=== PATIENT | female | born 1995 | race Caucasian/White ===

== ENCOUNTER 2024-01-27 11:12 | Outpatient (CLI) | payer OTHER, MEDICAID, SELFPAY | END 2024-01-27 11:13 | disposition home or self-care (01) | LOC: NFLDREF 01-31 02:56 | PROVIDERS: Visit Provider Advanced Practice Midwife | DX: Z34.92 Encounter for supervision of normal pregnancy, unspecified, second trimester (principal); Z3A.16 16 weeks gestation of pregnancy | CPT/HCPCS: 86787 ==

== ENCOUNTER 2024-02-22 08:35 | Outpatient (CLI) | payer OTHER, MEDICAID, SELFPAY ==
--- NOTE | 2024-02-22 08:45 | CRLHL7_ITS ---
For Patients: As a result of the Century Cures Act, medical imaging exams and procedure reports are released immediately into your electronic medical record. You may view this report before your referring provider. If you have questions, please contact your health care provider. INDICATION: Evaluate anatomy. COMPARISON: none TECHNIQUE: Real time argueta scale imaging of the fetus was performed as well as color Doppler analysis of the umbilical vessels. FINDINGS: Sonographic imaging demonstrates a single living intrauterine gestation. Fetus demonstrates a regular cardiac rate of 163 beats per minute. Fetus has a breech position. The placenta lies anteriorly without evidence of placenta previa. Placenta located 8.1 cm from the internal cervical os. Amniotic fluid volume appears normal. Single deepest vertical pocket: 3.8 cm. The cervix is closed and measures 4.5 cm in length. The composite ultrasound gestational age is calculated at 20 weeks 1 day with an estimated sonographic due date of 07/10/2024. The estimated weight is 345 grams which lies at the 64th %. The following biometric measurements were obtained: Biparietal diameter: 4.5 cm/19 weeks 3 days 27th% Head circumference: 17.2 cm/19 weeks 5 days 30th% Abdominal circumference: 15.9 cm/21 weeks 0 days 76th% Femur length: 3.1 cm/19 weeks 5 days 32nd% The HC/AC ratio measures: 1.08 range (1.07-1.25) On anatomic survey, there is a normal appearance of the cerebral ventricles, cavum septi pellucidi, cisterna magna and cerebellum. The nose, lips, and facial profile appear normal. The cervical, thoracic and lumbar spine are well visualized and appear normal. There is a normal four-chamber heart view and the left and right ventricular outflow tracts appear normal. The diaphragm and stomach appear normal. The kidneys and bladder also appear normal. There is a normal three-vessel cord and cord insertion site. The four extremities appear normal. IMPRESSION: Normal OB ultrasound exam with concordance of clinical and sonographic dating. No intrinsic abnormalities noted on anatomic survey. Dictated by Rafita Thurman MD @ 02/22/2024 10:28:04 AM (Electronically Signed)
== END 2024-02-22 08:36 | disposition home or self-care (01) ==
LOC: US 08:36
PROVIDERS: Visit Provider Advanced Practice Midwife
DX: Z34.92 Encounter for supervision of normal pregnancy, unspecified, second trimester (principal); Z3A.20 20 weeks gestation of pregnancy
CPT/HCPCS: 76805

== ENCOUNTER 2024-04-20 09:29 | Outpatient (CLI) | payer MEDICAID, SELFPAY | END 2024-04-20 09:30 | disposition home or self-care (01) | LOC: NFLDREF 04-22 11:33 | PROVIDERS: Visit Provider Advanced Practice Midwife | DX: Z34.93 Encounter for supervision of normal pregnancy, unspecified, third trimester (principal); Z3A.28 28 weeks gestation of pregnancy | CPT/HCPCS: 86592 ==

== ENCOUNTER 2024-06-15 10:36 | Outpatient (CLI) | payer MEDICAID, SELFPAY ==
[2024-06-16 11:09] LABS: Strep B DNA Probe POSITIVE (Negative)
[2024-06-16 11:20] LABS: Strep B Susceptibility Needed? Yes
== END 2024-06-15 10:37 | disposition home or self-care (01) ==
LOC: NFLDREF 10:36
PROVIDERS: Visit Provider Advanced Practice Midwife
DX: Z34.93 Encounter for supervision of normal pregnancy, unspecified, third trimester (principal); Z3A.36 36 weeks gestation of pregnancy
CPT/HCPCS: 82728; 87081; 87186; 87653

== ENCOUNTER 2024-07-13 18:42 | Inpatient (IN) | payer MEDICAID, SELFPAY ==
[2024-07-13] VITALS (11 sets, daily range): BP systolic 120–145; BP diastolic 77–88; PULSE 96–134; RESP 16; TEMP 36.8–37.3; O2SAT 96–100; BMI 35.2
--- OUTSIDE RECORDS SUMMARY | 2024-07-13 17:32 | XMS_ITS | Encounter Summary ---
Author Organization [place] Address [address] [place] [address] Care Team Providers Care Business Records Manager Name Role Phone No Ref-Primary, Physician Primary Care Provider Carly Salazar MD Unavailable [phone] Samara Garcia T PA-C Unavailable [phone] Kathy Foster DO Unavailable [phone] PhilipTerrie onofre APRN BOAT MECHANIC Unavailable Un available Esther Mabry APRN BOAT MECHANIC Primary Care Provider Esther Mabry APRN BOAT MECHANIC Unavailable Samara Garcia T PA-C Unavailable [phone] Samara Garcia PA-C Unavailable [phone] Murali Villarreal MD Unavailable [phone] Murali Villarreal MD Unavailable [phone] Kathy Foster DO Unavailable [phone] Lore Leblanc APRN, CNM Unavailable + Carly Salazar MD Unavailable [phone] Kathy Foster DO Unavailable [phone] Lore Leblanc APRN, CNM Unavailable + Carly Salazar MD Unavailable Encounter Details Date Type Department Care Team (Late st Contact Info) Description 02/07/2022 MyC Medical Advice [facility] [address] [place] [phone] Carly Salazar MD [address] [place], [place] [address] Social History Tobacco Use Types Packs/Day Years Used Date Smoking Tobacco: Never Smokeless Tobacco: Never Alcohol Use Standard Drinks/Week Comments Not Currently 0 (1 standard drink = 0.6 oz pur e alcohol) Comments No Sex and Gender Information Value Date Recorded Sex Assigned at Female 05/02/2022 10:06 AM CDT Legal Sex Female 3:33 PM CDT Gender Identity Female 05/02/2022 10:06 AM CDT Sexual Orientation Straight 05/02/2022 10 :06 AM CDT Occupation Industry Job Start Date Job End Date Not on file Not on file Not on file Not on file COVID-19 Exposure Response Date Recorded In the last 10 days, have yo u been in contact with someone who was confirmed or suspected to have Coronavirus/COVID-19? No / Unsure 01/23/2022 3:01 PM CDT documented as of this encounter Plan of Treatment Not on file documented as of this encounter Visit Diagnoses Not on filedocumented in this encounter Additional Health Concerns Assessment Noted Time PHQ-9 Depression Total Score: 16 018 7:48 AM ORACLE SOA DEVELOPER documented as of this encounter Care Teams Business Records Manager Relationship Specialty Start Date End Date No Ref-Primary, Physician PCP - General 05/17/21 08/14/22 Esther Mabry, HEAD PIECE ASSEMBLER BOAT MECHANIC [address] [place], [place] [address] PCP - General Internal Medicine 08/15/22 Carly Salazar MD [address] [place], [place] [address] Assigned OBGYN Provider 05/03/2207/03 Samara Garcia PA-C [address] [place] [address] Physician Activities Assistant Dermatology 03/31/22 [place] [address] [place] [address] cnc specialist 03/31/22 Terrie Palacios, HEAD PIECE ASSEMBLER BOAT MECHANIC Assigned PCP 07/09/22 09/05/22 Esther Mabry APRN BOAT MECHANIC [address] [place] [address] Assigned PCP 09/06/22 Samara Garcia PA-C [address] [place] [address] Assigned Surgical Provider 11/08/22 11/14/22 Samara Garcia PA-C [address] [address] Assigned Surgical Provider 09/27/22 10/24/22 Murali Villarreal MD [address] [place] [address] Assigned Surgical Provider 10/25/22 11/07/22 Murali Villarreal MD [address] [place] [address] Assigned Surgical Provider 11/15/22 05/03/24 Kathy Foster DO [address] [address] Assigned OBGYN Provider 07/04/23 Lore Leblanc APRN CN [address] [place] [address] Assigned OBGYN Provider 07/25/23 Carly Salazar MD [address] [place] [place] [address] cnc specialist 08/31/23 Kathy Foster DO [address] [address] Assigned OBGYN Provider 09/04/23 Lore Leblanc APRN CN [facility] [address] [place] [address] Assigned OBGYN Provider 09/25/23 Carly Salazar MD [address] [place] [address] Assigned OBGYN Provider 02/02/24 documented as of this encounter
--- OUTSIDE RECORDS SUMMARY | 2024-07-13 17:32 | XMS_ITS | Encounter Summary ---
Author Organization [place] Address [address] [place] [address] Care Team Providers Care Sales Broker Name Role Phone Carly Salazar MD Unavailable [phone] Samara Garcia PA-C Unavailable [phone] Kathy Foster DO Unavailable [phone] Esther Mabry APRN TANK PUMPER Primary Care Provider Esther Mabry APRN TANK PUMPER Unavailable Samara Garcia PA-C Unavailable [phone] Samara Garcia PA-C Unavailable [phone] Murali Villarreal MD Unavailable +[phone] Murali Villarreal MD Unavailable +[phone] Kathy Foster DO Unavailable [phone] Lore Leblanc APRN, CNM Unavailable + 2 Carly Salazar MD Unavailable [phone] Kathy Foster DO Unavailable [phone] Lore Leblanc APRN, CNM Unavailable + Carly Salazar MD Unavailable [phone] Encounter Details Date Type Department Care Team (Late st Contact Info) Description 09/25/2022 [facility] Medical Advice [address] [address] Blanca Gunderson, RN Social History Tobacco Use Types Packs/Day Years Used Date Smoking Tobacco: Never Passive Smoke Exposure: Never Smokeless Tobacco: Never Alcohol Use Standard Drinks/Week Comments Not Currently 0 (1 standard drink = 0.6 oz pur e alcohol) PHQ-2 Answer Date Recorded PHQ-2 Score 0 08/15/2022 Comments No Sex and Gender Information Value [...] suspected to have Coronavirus/COVID-19? No / Unsure 09/19/2022 12:06 PM SHOT COAT TENDER documented as of this encounter Plan of Treatment Not on file documented as of this encounter Visit Diagnoses Not on filedocumented in this encounter Additional Health Concerns Assessment Noted Time PHQ-9 Depression Total Score: 3 03/25/20 22 9:52 AM CDT documented as of this encounter Care Teams Sales Broker Relationship Specialty Start Date End Date Esther Mabry APRN TANK PUMPER [address] [place] [address] PCP - General Internal Medicine 08/15/22 Carly Salazar MD [address] [place] [address] Assigned OBGYN Provider 05/03/2207/03 Samara Garcia PA-C [address] [place] [address] Physician Cost Estimator Dermatology 03/31/22 [place] [address] [facility] [address] admissions consultant 03/31/22 Esther Mabry APRN TANK PUMPER [address] [place] [address] Assigned PCP 09/06/22 Samara Garcia PA-C [address] [place] [address] Assigned Surgical Provider 11/08/22 11/14/22 Samara Garcia PA-C [address] [place] [address] Assigned Surgical Provider 09/27/22 10/24/22 Murali Villarreal MD [address] [place] [address] Assigned Surgical Provider 10/25/22 11/07/22 Murali Villarreal MD [address] [place] [address] Assigned Surgical Provider 11/15/22 05/03/24 Kathy Foster DO [address] [address] Assigned OBGYN Provider 07/04/23 Lore Leblanc APRN CNM [address] [place] [id number] Assigned OBGYN Provider 07/25/23 Carly Salazar MD [address] [place] [address] admissions consultant 08/31/23 Kathy Foster DO [address] [address] Assigned OBGYN Provider 09/04/23 Lore Leblanc APRN [facility] [address] [place] [address] Assigned OBGYN Provider 09/25/23 Carly Salazar MD [address] [place] [address] Assigned OBGYN Provider 02/02/24 documented as of this encounter
--- OUTSIDE RECORDS SUMMARY | 2024-07-13 17:32 | XMS_ITS | Encounter Summary ---
Author Organization [place] Address [address] [place] [address] Care Team Providers Care Vamp Marker Name Role Phone Samara Garcia PA-C Unavailable [phone] Kathy Foster DO Unavailable [phone] Esther Mabry APRN SUPERVISOR FRAMING MILL Primary Care Provider Esther Mabry APRN SUPERVISOR FRAMING MILL Unavailable Murali Villarreal MD Unavailable [phone] Lore Leblanc APRNM Unavailable [phone] Carly Salazar MD Unavailable [phone] Kathy Foster DO Unavailable [phone] Lore Leblanc APRN, CNM Unavailable + 2 Carly Salazar MD Unavailable [phone] Encounter Details Date Type Department Care Team (Late st Contact Info) Description 08/27/2023 [facility] Medical Advice [facility] [address], [address] [place] [address] Lore Leblanc APRN CNNella [address] [facility] [address] [place] [address] Social History Tobacco Use Types Packs/Day Years Used Date Smoking Tobacco: Never Passive Smoke Exposure: Never Smokeless Tobacco: Never Alcohol Use Standard Drinks/Week Comments Not Currently 0 (1 standard drink = 0.6 oz pur e alcohol) PHQ-2 Answer Date Recorded PHQ-2 Score 0 08/15/2022 Adolescent Education Answer Date Record ed Getting School Help Needed Not on file 04/03 Comments No Sex and Gender Information Value Date Recorded Sex Assigned at Female 05/02/2022 10:06 AM CDT Legal Sex Female 3:33 PM CDT Gender Identity Female 05/02/2022 10:06 AM CDT Sexual Orientation Straight 05/02/2022 10 :06 AM CDT Occupation Industry Job Start Date Job End Date Not on file Not on file Not on file Not on file documented as of this encounter Miscellaneous Notes * Telephone Encounter - Saba Ledbetter RN - 08/27/2023 3:33 PM INFORMATION TECHNOLOGY ASSOCIATE Pls see lucian msg and advise. BAIRON Walter RMATION TECHNOLOGY ASSOCIATE documented in this encounter Plan of Treatment Not on file documented as of this encounter Visit Diagnoses Not on filedocumented in this encounter Additional Health Concerns Assessment Noted Time PHQ-9 Depression Total Score: 3 03/25/20 22 9:52 AM CDT documented as of this encounter Care Teams Vamp Marker Relationship Specialty Start Date End Date Esther Mabry APRN SUPERVISOR FRAMING MILL [address] [place] [address] PCP - General Internal Medicine 08/15/22 Samara Garcia PASummerC [address] [place] [address] Physician Head Buyer Tobacco Dermatology 03/31/22 [place] [address] [place] [address] driving teacher 03/31/22 Esther Mabry APRN SUPERVISOR FRAMING MILL [address] [place] [address] Assigned PCP 09/06/22 Murali Villarreal MD [address] [place] [address] Assigned Surgical Provider 11/15/22 05/03/24 Lore Leblanc APRN CNM [facility] [address] [place] [address] Assigned OBGYN Provider 07/25/23 Carly Salazar MD [address] [place] [address] driving teacher 08/31/23 Kathy Foster DO [address] [facility] [address] [place] [address] Assigned OBGYN Provider 09/04/23 Lore Leblanc APRN CN [facility] [place] [facility] [address] [place] [address] Assigned OBGYN Provider 09/25/23 Carly Salazar MD [address] [place] [address] Assigned OBGYN Provider 02/02/24 documented as of this encounter
--- OUTSIDE RECORDS SUMMARY | 2024-07-13 17:32 | XMS_ITS | Encounter Summary ---
Author Organization [place] Address [address] [place] [address] Care Team Providers Care Ep Technologist Name Role Phone Samara Garcia PA-C Unavailable [phone] Kathy Foster DO Unavailable [phone] Esther Mabry ESTHETICIAN MAKEUP ARTIST PHARMACY TECH Primary Care Provider [phone] Eshter Mabry APRN PHARMACY TECH Unavailable [phone] Murali Villarreal MD Unavailable Carly Salazar MD Unavailable [phone] Lore Leblanc APRN CN Unavailable [phone] Carly Salazar MD Unavailable [phone] Encounter Details Date Type Department Care Team (Late st Contact Info) Description 11/18/2023 [facility] Medical Advice [facility] [place] [address] [facility] [address] [place] [phone] Tori Lewis, RN Social History Tobacco Use Types Packs/Day Years Used Date Smoking Tobacco: Never Passive Smoke Exposure: Never Smokeless Tobacco: Never Alcohol Use Standard Drinks/Week Comments Not Currently 0 (1 standard drink = 0.6 oz pur e alcohol) PHQ-2 Answer Date Recorded PHQ-2 Score 0 11/18/2023 Adolescent Education Answer Date Record ed Getting School Help Needed Not on file 04/03 Estimated Date of Delivery Comme nts Yes 07/11/2024 Based on last me nstrual period of 10/05/2023 (Exact Date), regular, still Sex and Gender Information Value Date Recorded Sex Assigned at Female 05/02/2022 10:06 AM CDT Legal Sex Female 3:33 PM CDT Gender Identity Female 05/02/2022 10:06 AM CDT Sexual Orientation Straight 05/02/2022 10 :06 AM CDT 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 on file Not on file Not on file documented as of this encounter Plan of Treatment Not on file documented as of this encounter Visit Diagnoses Not on filedocumented in this encounter Additional Health Concerns Assessment Noted Time PHQ-9 Depression Total Score: 3 03/25/20 9:52 AM CDT documented as of this encounter Care Teams Ep Technologist Relationship Specialty Start Date End Date Esther Mabry APRN PHARMACY TECH [address] [place] [address] PCP - General Internal Medicine 08/15/22 Samara Garcia PASummerC [address] [place] [address] Physician Green Feed Attendant Dermatology 03/31/22 [place] [address] [place] [address] rn palliative 03/31/22 Esther Mabry APRN PHARMACY TECH [address] [place] [address] Assigned PCP 09/06/22 Murali Villarreal MD [address] [place] [address] Assigned Surgical Provider 11/15/22 05/03/24 Carly Salazar MD [address] [place] [address] rn palliative 08/31/23 Lore Leblanc APRN [facility] [address] [place] [address] Assigned OBGYN Provider 09/25/23 Carly Salazar MD [address] [place] [address] Assigned OBGYN Provider 02/02/24 documented as of this encounter
--- OUTSIDE RECORDS SUMMARY | 2024-07-13 17:32 | XMS_ITS | Encounter Summary ---
Author Organization [place] Address [address] [place] [address] Care Team Providers Care Motel Food Service Supervisor Name Role Phone No Ref-Primary, Physician Primary Care Provider Carly Salazar MD Unavailable [phone] Samara Garcia T PA-C Unavailable [phone] Kathy Foster DO Unavailable [phone] PhilipTerrie onofre APRN LINUX SUPPORT ENGINEER Unavailable Un available Esther Mabry APRN LINUX SUPPORT ENGINEER Primary Care Provider Esther Mabry APRN LINUX SUPPORT ENGINEER Unavailable Samara Garcia T PA-C Unavailable [phone] [...] Care Team (Late st Contact Info) Description 10/21/2021 MyC Medical Advice Initial Department Danish Irvin Social History Tobacco Use Types Packs/Day Years Used Date Smoking Tobacco: Never Smokeless Tobacco: Never Alcohol Use Standard Drinks/Week Comments Not Currently 0 (1 standard drink = 0.6 oz pur e alcohol) Comments Yes Sex and Gender Information Value Date Recorded [...] suspected to have Coronavirus/COVID-19? No / Unsure 10/24/2021 10:50 AM CDT documented as of this encounter Plan of Treatment Not on file documented as of this encounter Visit Diagnoses Not on filedocumented in this encounter Additional Health Concerns Assessment Noted Time PHQ-9 Depression Total Score: 16 018 7:48 AM CRAYON PAINTER documented as of this encounter Care Teams Motel Food Service Supervisor Relationship Specialty Start Date End Date No Ref-Primary, Physician PCP - General 05/17/21 08/14/22 Esther Mabry APRN LINUX SUPPORT ENGINEER [address] [place], [place] [address] PCP - General Internal Medicine 08/15/22 Carly Salazar MD [address] [place] [address] Assigned OBGYN Provider 05/03/2207/03 Samara Garcia PA-C [address] [place] [address] Physician Ampoule Filler Dermatology 03/31/22 [place] [address] [facility] [place] [address] newspaper writer 03/31/22 Terrie Palacios, NETWORK CONTROL OPERATORS SUPERVISOR LINUX SUPPORT ENGINEER Assigned PCP 07/09/22 09/05/22 Esther Mabry, NETWORK CONTROL OPERATORS SUPERVISOR LINUX SUPPORT ENGINEER [address] [place] [address] Assigned PCP 09/06/22 Samara Garcia PA-C [address] [place] [address] Assigned Surgical Provider 11/08/22 11/14/22 Samara Garcia PA-C [address] [place] [address] Assigned Surgical Provider 09/27/22 10/24/22 Murali Villarreal MD [address] [place] [address] Assigned Surgical Provider 10/25/22 11/07/22 Murali Villarreal MD [address] [place] [address] Assigned Surgical Provider 11/15/22 05/03/24 Kathy Foster DO [address] [address] Assigned OBGYN Provider 07/04/23 Lore Leblanc APRN CN [address] [place] [address] Assigned OBGYN Provider 07/25/23 Carly Salazar MD [address] [facility] [place] [address] newspaper writer 08/31/23 Kathy Foster DO [address] [place] [address] Assigned OBGYN Provider 09/04/23 Lore Leblanc APRN CN [address] [place] [address] Assigned OBGYN Provider 09/25/23 Carly Salazar MD [address] [facility] [place] [address] Assigned OBGYN Provider 02/02/24 documented as of this encounter
--- OUTSIDE RECORDS SUMMARY | 2024-07-13 17:32 | XMS_ITS | Encounter Summary ---
Author Organization [place] Address [address] [place] [address] Care Team Providers Care Physician Compensation Analyst Name Role Phone Carly Salazar MD Unavailable [phone] Samara Garcia PA-C Unavailable [phone] Kathy Foster DO Unavailable [phone] Esther Mabry APRN DENTAL HYGIENE ADMINISTRATIVE ASSISTANT Primary Care Provider Esther Mabry APRN DENTAL HYGIENE ADMINISTRATIVE ASSISTANT Unavailable Samara Garcia PA-C Unavailable [phone] Samara Garcia PA-C Unavailable [phone] Murali Villarreal MD Unavailable +[phone] Murali Villarreal MD Unavailable +[phone] Kathy Foster DO Unavailable [phone] Lore Leblanc APRN, CNM Unavailable + 2 Carly Salazar MD Unavailable [phone] Kathy Foster DO Unavailable [phone] Lore Leblanc APRN, CNM Unavailable + Carly Salazar MD Unavailable [phone] Reason for Visit * Reason Onset Date Comments Breast Problem 09/08/2022 Encounter Details Date Type Department Care Team (Late st Contact Info) Description 09/08/2022 MyC Medical Advice [facility] [address] [place] [phone] Esther Mabry, SURINDER DENTAL HYGIENE ADMINISTRATIVE ASSISTANT [address] [place] [address] Breast Problem Social History Tobacco Use Types Packs/Day Years [...] suspected to have Coronavirus/COVID-19? No / Unsure 08/15/2022 10:13 AM DATA CENTER ENGINEER documented as of this encounter Miscellaneous Notes * Telephone Encounter - Katelin Vanessa RN - 09/09/2022 11:53 AM DATA CENTER ENGINEER Routing to nuts and bolts assembler triage. Please assess. CENTER ENGINEER * Telephone Encounter - Esther Mabry APRN CNP - 09/09/2022 11:37 AM DATA CENTER ENGINEER I would recommend she calls her CHROME PLATER's office where she followed recently for her and talk to their triage nurse. CENTER ENGINEER * Telephone Encounter - Terrie Starkey RN - 09/09/2022 10:52 AM DATA CENTER ENGINEER Please advise. Pt sent this yesterday. Should she go to ? CENTER ENGINEER documented in this encounter Plan of Treatment Not on file documented as of this encounter Visit Diagnoses Not on filedocumented in this encounter Additional Health Concerns Assessment Noted Time PHQ-9 Depression Total Score: 3 03/25/20 9:52 AM CDT documented as of this encounter Care Teams Physician Compensation Analyst Relationship Specialty Start Date End Date Esther Mabry, SURINDER DENTAL HYGIENE ADMINISTRATIVE ASSISTANT [address] [place] [address] PCP - General Internal Medicine 08/15/22 Carly Salazar MD [address] [place] [address] Assigned OBGYN Provider 05/03/2207/03 Samara Garcia PA-C [address] [place], [place] [address] Physician Screen Printing Cloth Spreader Dermatology 03/31/22 [place] [address] [place] [address] nuts and bolts assembler 03/31/22 Esther Mabry APRN DENTAL HYGIENE ADMINISTRATIVE ASSISTANT [address] [place] [address] Assigned PCP 09/06/22 Samara Garcia PA-C [address] [place] [address] Assigned Surgical Provider 11/08/22 11/14/22 Samara Garcia PA-C [address] [place] [address] Assigned Surgical Provider 09/27/22 10/24/22 Murali Villarreal MD [address] [place] [address] Assigned Surgical Provider 10/25/22 11/07/22 Murali Villarreal MD [address] [place] [address] Assigned Surgical Provider 11/15/22 05/03/24 Kathy Foster DO [address] [address] Assigned OBGYN Provider 07/04/23 Lore Leblanc APRN CN [address] [place] [address] Assigned OBGYN Provider 07/25/23 Carly Salazar MD [address] [place] [address] nuts and bolts assembler 08/31/23 Kathy Foster DO [address] [address] Assigned OBGYN Provider 09/04/23 Lore Leblanc APRN CN [address] [place] [address] Assigned OBGYN Provider 09/25/23 Carly Salazar MD [address] [place] [address] Assigned OBGYN Provider 02/02/24 documented as of this encounter
--- OUTSIDE RECORDS SUMMARY | 2024-07-13 17:32 | XMS_ITS | Referral Summary ---
Author Organization [facility] Address [address] [place] [address] Care Team Providers Care Port Engineer Name Role Phone Samara Garcia PA-C Unavailable Kathy Foster DO Unavailable Esther Mabry SUPERVISOR SEAMING GASTROENTEROLOGY NURSE PRACTITIONER Primary Care Provider [phone] Esther Mabry APRN GASTROENTEROLOGY NURSE PRACTITIONER Unavailable [phone] Carly Salazar MD Unavailable Carly Salazar MD Unavailable Allergies Active Allergy Reactions Criticality Noted Date Comments Amoxicillin Rash Low 05/27/2021 Medications MV & Min w/FA-DHA ( GUMMIES) 0.18-25 MG CHEW Active Active Problems Problem Noted Date Diagnosed Date 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 Lactose intolerance 11/18/2023 Indication for care in labor or delivery 022 Dysthymic disorder 02/18/2011 Estimated Date of Delivery Comme nts Yes 07/11/2024 Based on last me nstrual period of 10/05/2023 (Exact Date), regular, still Immunizations Name Administration Dates Next Due DTAP (<7y) 01/31/2002,09/18/1997 Flu, Unspecified 08/27/2006 HEPA 09/18/1997 HIB, Unspecified 09/18/1997, 7,1996,1996 HPV9 03/06/2016,09/06/2015,07/11/2015 HepB, Unspecified 06/26/1997,1996,08/26/18 97 Hepatitis B, Adult 03/03/2018,09/07/2017, 018 Historical DTP/aP 01/31/2002, 8,01/02/1997,1996,1996 Influenza (IIV3) PF 04/15/2016,07/11/2015,2006 Influenza (prior to 2023) 04/29/2017 Influenza Vaccine >6 months,quad, PF 12/2020,04/11/2019,04/24/2018,2017,04/29/2017,04/15/2016,07/11/2015 MMR 09/07/2017, 8,02/01/2000,1996 Meningococcal ACWY (Menveo ) 07/23/2017 Polio, Unspecified 01/31/2002, 7,1996,1996 TDAP (Adacel,Boostrix) 11/07/2021,03/01/2009 Td (Adult), Adsorbed 07/29/2018 Social History Tobacco Use Types Packs/Day Years Used Date Smoking Tobacco: Never Passive Smoke Exposure: Never Smokeless Tobacco: Never Tobacco Cessation:Counseling Given: Not Answered Alcohol Use Standard Drinks/Week Comments Not Currently 0 (1 standard drink = 0.6 oz pur e alcohol) PHQ-2 Answer Date Recorded PHQ-2 Score 0 01/01/2024 Adolescent Education Answer Date Record ed Getting [...] file Not on file Not on file Last Filed Vital Signs Vital Sign Reading Time Taken Comments Blood Pressure 112/58 01/01/2024 2:29 PM CDT Pulse 100 06/12/2023 4:27 PM FIELD RECORDER Temperature 36.6 C (97.9 F) 06/12/2023 4:27 PM FIELD RECORDER Respiratory Rate 16 06/12/2023 4:27 PM FIELD RECORDER Oxygen Saturation 100% 06/12/2023 4:27 PM FIELD RECORDER Inhaled Oxygen Concentration - - Weight 75.8 kg (167 lb) 01/01/2024 2:29 PM CDT Height 165.1 cm (5' 5) 06/22/2023 10:51 AM FIELD RECORDER Body Mass Index 27.79 06/22/2023 10:51 AM FIELD RECORDER Plan of Treatment Not on file Procedures Procedure Name Priority Date/Time Associated Diagnosis Comments MICROBIOLOGY ISOLATE REFERRAL Routine 06/17/2024 5:54 PM FIELD RECORDER CHLAMYDIA TRACHOMATIS PCR Routine 01/01/2024 3:37 PM CDT Supervision of other normal , antepartum MYRIAD NON-INVASIVE SCREENING PREQUEL Routine 01/01/2024 3:25 PM CDT Supervision of other normal , antepartum HIV ANTIGEN ANTIBODY COMBO Routine 12/02/2023 9:19 AM CDT care, subsequent , unspecified trimester HEPATITIS C SCREEN REFLEX TO HCV RNA QUANT AND GENOTYPE Routine 12/02/2023 9:19 AM CDT care, subsequent , unspecified trimester GROUP B STREP PCR Routine 12/26/2021 10: 46 AM CDT Supervision of normal first , antepartum GLUCOSE TOLERANCE GEST SCREEN 1 HOUR Routine 10/24/2021 12:11 PM CDT Supervision of normal first , antepartum GYNECOLOGIC CYTOLOGY Routine 06/24/2021 4:39 PM FIELD RECORDER Encounter for supervision of normal first in first trimester from Last 3 Months or Most Recently Relevant to Health Maintenance Results * (ABNORMAL) Microbiology Isolate Referral (06/17/2024 5:54 PM FIELD RECORDER) Culture Streptococcus agalactiae (Group B Streptococcus)(A ) LENNY 06/19/2024 8:35 AM FIELD RECORDER [facility] Comment:Organism identified by client. Swab VAGINAL STRUCTURE / Unknown Non-blood Collection / Unknown 06/17/2024 5:54 PM FIELD RECORDER 06/17/2024 5:54 PM FIELD RECORDER Narrative Organism Antibiotic Method Susceptibility Streptococcus agalactiae (Gr oup B Streptococcus) Penicillin LENNY <=0.03 ug/mL: Susceptible Streptococcus agalactiae (Gr oup B Streptococcus) Clindamycin LENNY <=0.06 ug/mL: Susceptible Streptococcus agalactiae (Gr oup B Streptococcus) Cefotaxime LENNY <=0.25 ug/mL: Susceptible Streptococcus agalactiae (Gr oup B Streptococcus) Ceftriaxone LENNY <=0.25 ug/mL: Susceptible Streptococcus agalactiae (Gr oup B Streptococcus) Vancomycin LENNY 0.5 ug/mL: Susceptible [place] POOL LAB - MICRO GENERAL ORD ERABLES Final Result [facility] Inf. Diseases Diag. Lab [address] [facility], [address] [place] [address] * CHLAMYDIA TRACHOMATIS PCR (01/01/2024 3:37 PM CDT) Chlamydia trachomatis Negative Negative 01/02/2024 12:23 PM CDT [facility] Comment:A negative result by commissioned sales associate mediated amplification does not preclude the presence of C. trachomatis infection because results are dependent on proper and adequate collection, absence of inhibitors and sufficient rRNA to be detected. Urine VOIDED URINE SPECIMEN / Unknown Non-blood Collection / Unknown 01/01/2024 3:37 PM CDT 01/01/2024 3:37 PM CDT Carly Salazar MD LAB - MICRO GENERAL ORDERABLE S Final Result [facility] Inf. Diseases Diag. Lab [address] [facility], [address] [place] [address], [facility] * Myriad Non-Invasive Screening???Prequel (01/01/2024 3:25 PM CDT) See Scanned Result MYRIAD NON-INVASIVE SCREENING PREQUEL-Scann ed 01/11/2024 8:48 AM CDT [facility] Blood BLOOD SPECIMEN / Unknown Venipuncture / Unknown 01/01/2024 3:25 PM CDT 01/01/2024 3:25 PM CDT Carly Salazar MD LAB - BLOOD ORDERABLES Final Result Performing Organization Address City/[facility] Co de Phone Number [facility] [address] [place], [place] [address] [phone] * HIV Antigen Antibody Combo (12/02/2023 9:19 AM CDT) HIV Antigen Antibody Combo Nonreactive Nonreactive 12/03/2023 3:57 PM [facility]T [facility]ORATORY Comment:Negative HIV-1 p24 a ntigen and HIV-1/2 antibody screening test results usually indicate the absence of HIV-1 and HIV-2 infection. However, such negative results do not rule-out acute HIV infection. If acute HIV-1 or HIV-2 infection is suspected, detection of HIV-1 or HIV-2 RNA is recommended. Blood BLOOD SPECIMEN / Unknown Venipuncture / Unknown 12/02/2023 9:19 AM CDT 12/02/2023 9:19 AM CDT Carly Salazar MD LAB - BLOOD ORDERABLES Final Result [facility] Lab [address] [facility], [address] [place] [address], [facility] * Hepatitis C Screen Reflex to HCV RNA Quant and Genotype (12/02/2023 9:19 AM CDT) Hepatitis C Antibody Nonreactive Nonreactive 12/03/2023 3:41 PM CDT [facility] Comment:A nonreactive screen ing test result does not exclude the possibility of exposure to or infection with HCV. Nonreactive screening test results in individuals with prior exposure to HCV may be due to antibody levels below the limit of detection of this assay or lack of reactivity to the HCV antigens used in this assay. Patients with recent HCV infections (<3 months from time of exposure) may have false- negative HCV antibody results due to the time needed for seroconversion (average of 8 to 9 weeks). Blood BLOOD SPECIMEN / Unknown Venipuncture / Unknown 12/02/2023 9:19 AM CDT 12/02/2023 9:19 AM CDT us Carly Salazar MD LAB - BLOOD ORDERABLES Final Result [facility] Core Lab [address] [facility], [address] [place] [phone] * Group B strep PCR (12/26/2021 10:46 AM CDT) Group B Strep PCR Negative Negative 022 4:52 PM CDT [facility] Comment:Presumed negative fo r Streptococcus agalactiae (Group B Streptococcus) or the number of organisms may be below the limit of detection of the assay. Swab STRUCTURE OF RECTOVAGINAL SEPTUM / Unknown Non-blood Collection / Unknown 12/26/2021 10:46 AM CDT 12/26/2021 11:46 AM CDT Narrative [facility] - 12/27/2021 4:52 PM CDT The Enver[employer] Xpert GBS LB Assay, performed on the [employer], is a qualitative in vitro diagnostic test designed to detect Group B Streptococcus (GBS) DNA from enriched vaginal/rectal swab specimens, using fully automated, real-time polymerase chain reaction (PCR) with fluorogenic detection of the amplified DNA. Xpert GBS LB Assay testing is indicated as an aid in determining GBS colonization status in antepartum women. This assay does not diagnose or monitor treatment for GBS infections. The [employer] Xpert GBS LB Assay is intended for use in hospital, reference or state laboratory settings. The device is not intended for [id number]-[id number] use. Carly Salazar MD LAB - MICRO GENERAL ORDERABLE S Final Result [facility] Inf. Diseases Diag. Lab [address] [facility], [address] [place] [address], [facility] [phone] * Glucose tolerance, gest screen, 1 hour (10/24/2021 12:11 PM CDT) Glu Gest Screen 1hr 50g 107 70 - 129 mg/dL 10/24/2021 12:13 PM CDT [facility] Blood STRUCTURE OF LEFT UPPER LIMB / Unknown Venipuncture / Unknown 10/24/2021 12:11 PM CDT 10/24/2021 12:12 PM CDT Narrative [facility] - 10/24/2021 12:13 PM CDT This is a screening test for Gestational Diabetes Mellitus. If results are 130 mg/dL or greater, a Standard 100 gram Gestational 3 hour Glucose Tolerance should be performed. Carly Salazar MD LAB - BLOOD ORDERABLES Final Result [facility] [address] [facility], [address] [place] [address], [facility] [phone] * Pap screen only - recommended age 21 - 24 years (06/24/2021 4:39 PM FIELD RECORDER) Interpretation Negative for Intraepithelial Lesion or Malignancy (NILM) 06/28/2021 8:57 AM FIELD RECORDER [facility] Comment Papanicolaou Test Limitations: Cervical cytology is a screening test with limited sensitivity, and regular screening is critical for cancer prevention. Pap tests are primarily effective for the diagnosis/prevent ion of squamous cell carcinoma, not adenocarcinoma or other cancers. 06/28/2021 8:57 AM FIELD RECORDER [facility] Specimen Adequacy Satisfactory for evaluation, endocervical/blanc sformation zone component present 06/28/2021 8:57 AM FIELD RECORDER [facility] Clinical Information 06/28/2021 8:57 AM FIELD RECORDER [facility] Reflex Testing No 06/28/2021 8:57 AM FIELD RECORDER [facility] Previous Abnormal? No 06/28/2021 8:57 AM FIELD RECORDER [facility] Performing Labs The technical component of this testing was completed at [facility] 06/28/2021 8:57 AM FIELD RECORDER [facility] Brushing CERVIX UTERI STRUCTURE / Unknown 06/24/2021 4:39 PM FIELD RECORDER 06/24/2021 4:58 PM FIELD RECORDER us Kathy Foster DO LAB - BEAKER AP Final Res ult [facility] [address] [place] [address], [facility] [phone] from Last 3 Months or Most Recently Relevant to Health Maintenance Insurance [employer] [place] [facility] [email or web address] MEDICAID [place] Advance Directives For more information, please contact: [phone] * Full Code (Latest Code Status on File) Date Activated Date Inactivated Comments 01/27/2022 4:34 PM 01/30/2022 4:03 PM All basic an d advanced life-sustaining interventions are performed as appropriate Question Answer Comments Code status determined by: Discussion with cameron nt/ legal decision maker * Full Code Date Activated Date Inactivated Comments 01/26/2022 11:54 PM 01/27/2022 4:34 PM All basic a nd advanced life-sustaining interventions are performed as appropriate Question Answer Comments Code status determined by: Discussion with cameron nt/ legal decision maker Care Teams Port Engineer Relationship Specialty Start Date End Date Esther Mabry APRN GASTROENTEROLOGY NURSE PRACTITIONER [address] [place] [address] PCP - General Internal Medicine 08/15/22 Samara Garcia PA-C [address] [place] [address] Physician Office Automation Technician Dermatology 03/31/22 [place] [address] [place], [place] [id number] MD retail and restaurant 03/31/22 Esther Mabry APRN GASTROENTEROLOGY NURSE PRACTITIONER [address] [place] [address] Assigned PCP 09/06/22 Carly Salazar MD [address] [place] [address] retail and restaurant 08/31/23 Carly Salazar MD [address] [place] [address] Assigned OBGYN Provider 02/02/24
--- OUTSIDE RECORDS SUMMARY | 2024-07-13 17:32 | XMS_ITS | Encounter Summary ---
Author Organization [facility] Address [address] [place] [address] Care Team Providers Care Balance Staff Staker Name Role Phone No Ref-Primary, Physician Primary Care Provider Carly Salazar MD Unavailable [phone] Samara Garcia T PA-C Unavailable [phone] Kathy Foster DO Unavailable [phone] PhilipTerrie onofre APRN [employer] Unavailable Un available Esther Mabry APRN [employer] Primary Care Provider Esther Mabry APRN [employer] Unavailable Samara Garcia T PA-C Unavailable [phone] [...] Care Team (Late st Contact Info) Description 03/18/2022 MyC Medical Advice [facility] [address] [place] [address] Carly Salazar MD [address] [place] [address] Social History Tobacco Use Types Packs/Day Years [...] Depression Total Score: 16 018 7:48 AM INTENSIVE CARE UNIT NURSE documented as of this encounter Care Teams Balance Staff Staker Relationship Specialty Start Date End Date No Ref-Primary, Physician PCP - General 05/17/21 08/14/22 Esther Mabry, OFFICE LEAD [employer] [address] [place] [address] PCP - General Internal Medicine 08/15/22 Carly Salazar MD [address] [place] [address] Assigned OBGYN Provider 05/03/2207/03 Samara Garcia, PASummerC [address] [place] [address] Physician Cardiovascular Tech Dermatology 03/31/22 [place] [address] [place] [address] drum sander 03/31/22 Terrie Palacios, OFFICE LEAD [employer] Assigned PCP 07/09/22 09/05/22 Esther Mabry, OFFICE LEAD [employer] [address] [place] [address] Assigned PCP 09/06/22 Samara Garcia PA-C [address] [place] [address] Assigned Surgical Provider 11/08/22 11/14/22 Samara Garcia PA-C [address] [place] [address] Assigned Surgical Provider 09/27/22 10/24/22 Murali Villarreal MD [address] [place] [address] Assigned Surgical Provider 10/25/22 11/07/22 Murali Villarreal MD [address] [place] [address] Assigned Surgical Provider 11/15/22 05/03/24 Kathy Foster DO [address] [address] Assigned OBGYN Provider 07/04/23 Lore Leblanc APRN CN [address] [facility] [address] [place] [address] Assigned OBGYN Provider 07/25/23 Carly Salazar MD [address] [place] [address] drum sander 08/31/23 Kathy Foster DO [address] [address] Assigned OBGYN Provider 09/04/23 Lore Leblanc APRN CN [address] [facility] [address] [place] [address] Assigned OBGYN Provider 09/25/23 Carly Salazar MD [address] [place] [address] Assigned OBGYN Provider 02/02/24 documented as of this encounter
--- OUTSIDE RECORDS SUMMARY | 2024-07-13 17:32 | XMS_ITS | Clinical Summary ---
Author Organization [facility] Address [place], [place] [address] Care Team Providers Care Car Seat Upholsterer Name Role Phone Sirena Langley MD Primary Care Provider [phone] Allergies Active Allergy Reactions Criticality Noted Date Comments Amoxicillin GI Upset 05/19/2012 Medications * This document contains information received from the source organization and may not represent a complete record from that organization. No known medications Active Problems Problem Noted Date Diagnosed Date Early stage of 05/17/2021 Not immune to hepatitis B virus 07/23/2017 DEPRESSION/ANXIETY 02/18/2011 Lactose intolerance Leonora-Danlos disease Comments Yes Resolved Problems Problem Noted Date Diagnosed Date Resolved Date Sunburn due to tanning bed 09/10/2013 0 09/26/2013 CELLULITIS/ABSCESS, FOOT 10/13/2011 ORAL CONTRACEPTION 07/08/2011 1 VERRUCA VULGARIS 06/24/2011 09/26/2013 PHARYNGITIS-ACUTE 06/24/2011 07/24/2011 CONJUNCTIVITIS 04/28/2011 05/05/2011 ANKLE PAIN, CHRONIC 03/27/2011 07/23/19 18 IRREGULAR MENSES 11/19/2010 09/26/2013 WELL CHILD EXAMINATION 07/23/201009/26 PLANTAR WART 03/28/2010 09/26/2013 REACTIVE AIRWAY DISEASE 12/11/2012 GASTRITIS 09/26/2013 Immunizations Name Administration Dates Next Due DTP 01/31/2002, 8,01/02/1997,10/31,1996 HPV 9 (Gardasil 9) 03/06/2016,09/06/2015, 015 Hepatitis A, Unspecified 09/18/1997 Hepatitis B (Adult) 03/03/2018,09/07/2017,2017 Hepatitis B, Unspecified 06/26/1997,1996,0 1996 Hib Conjugate, Unspecified 09/18/1997,,1996,08/26 Influenza Virus, Unspecified 08/27/2006 Influenza, IIV3 (Age 6-35 mos) 04/29/2017 Influenza, IIV3 (Age >=3 years) 04/15/2016,07/11,08/27/2006 Influenza, IIV4 07/18/2020, 9,04/12/2018,04/29,04/15/2016,07/11/2015 MENINGOCOCCAL VACCINE 2 VIAL [id number] (MENVEO) 07/23/2017 MMR 09/07/2017, 8,02/01/2000,06/26 MMR, Unspecified 02/01/2000,06/26/1997 Polio Virus, Unspecified 01/31/2002,12/12,1996,08/26 Td (Age >=7 Years) 07/29/2018 Tdap 03/01/2009 Family History Medical History Relation Name Comments Bipolar disorder Father Sharad no contact Heart Disease Maternal Grandfather [place], [place] D Hiatal hernia Maternal Grandfather Heart Disease Maternal Grandmother [place], [place] D Other Mother Yazmin Pituitary adeno ma Psychiatric illness Mother Yazmin chronic anxiety Seizures Mother Yazmin x1, grand mal Cancer Other 1 Maternal Side FHx CA Diabetes Other 2 Matertal Side FHx Relation Name Status Comments Father Sharad Alive Maternal Grandfather Alive Maternal Grandmother Alive Mother Yazmin Alive Other 1 Maternal Side Other 2 Matertal Side Paternal Grandfather Alive Paternal Grandmother Alive Social History Tobacco Use Types Packs/Day Years Used Date Smoking Tobacco: Never Smokeless Tobacco: Never Alcohol Use Standard Drinks/Week Comments Yes 0 (1 standard drink = 0.6 oz pur e alcohol) 1 glass of wine per week PHQ-2 Answer Date Recorded PHQ-2 TOTAL SCORE 0 07/18/2020 Social Connections Answer Date Recorded Frequency of Communication with Friends and Fami ly Not on file 07/13/2021 Financial Resource Strain Answer Date R ecorded Difficulty of Paying Living Expenses Not on file 07/13/2021 Difficulty of Paying Living Expenses Not on file 07/13/2021 Comments Yes Sex and Gender Information Value Date Recorded Sex Assigned at Not on file Legal Sex Female 8:32 AM SERVICE PARTS COORDINATOR Gender Identity Not on file Sexual Orientation Not on file Obstetrics History Para Term AB IAB SAB Ectopic Multiple Livin g Live Births 1 0 0 0 0 0 0 0 0 0 0 Date Outcome GA Total Labor Labor//3rd Weight Sex Type Anes PTL Nandini A1 A5 Name Clin Current Last Filed Vital Signs Vital Sign Reading Time Taken Comments Blood Pressure 141/91 06/03/2021 7:07 PM SERVICE PARTS COORDINATOR Pulse 100 06/03/2021 7:07 PM SERVICE PARTS COORDINATOR Temperature 37.3 C (99.1 F) 06/03/2021 7:07 PM SERVICE PARTS COORDINATOR Respiratory Rate 16 06/03/2021 7:07 PM SERVICE PARTS COORDINATOR Oxygen Saturation 98% 06/03/2021 7:07 PM SERVICE PARTS COORDINATOR Inhaled Oxygen Concentration - - Weight 73.9 kg (163 lb) 05/17/2021 9:44 AM CDT Height 166.4 cm (5' 5.5) 07/18/2020 7:41 AM SERVICE PARTS COORDINATOR Body Mass Index 26.71 07/18/2020 7:41 AM SERVICE PARTS COORDINATOR Plan of Treatment Health Maintenance Due Date Last Done Comments HIV for age 15-65 2011 BMI (ht and wt on same day) for age 18+ 07/18/2021 07/18/2020, 09/21/2019, 07/29/2018, Additional history exists Depression screening for age 12+ 07/18/2021 07/18/2020, 09/22/2019, 09/21/2019, Additional history exists Pap test for age 21-65 07/18/2023 07/18/2020, 2017 COVID-19 vaccine series ( season) 2024 Influenza for age 9-49 03/13/2024 , 04/11/2019, 04/12/2018, Additional history exists Tetanus booster 07/29/2028 07/29/2018, 03/01/2009 RSV vaccine for adults or (1 - 1-dose 75+ series) 2071 Tdap Completed 03/01/2009 Hepatitis C screening for age 18-79 Completed 04/11/2015 Pneumococcal series for age 6-49 Aged Out No longer eligible based on patient's age to complete this topic Procedures Procedure Name Priority Date/Time Associated Diagnosis Comments INDEPENDENT FREIGHT AGENT THIN PREP PAP SCREEN IMAGED Routine 07/18/2020 8:15 AM SERVICE PARTS COORDINATOR Pap smear for cervical cancer screening ANTI HCV Routine 04/11/2015 5:31 PM CDT Arthralgia from Last 3 Months or Most Recently Relevant to Health Maintenance Results * INDEPENDENT FREIGHT AGENT THIN PREP PAP SCREEN IMAGED (07/18/2020 8:15 AM SERVICE PARTS COORDINATOR) Case Report Gynecologic Cytology Report Case: [id number] Authorizing Provider: Amie Pugh NP Collected: 07/18/2020 0815 Ordering Location: [place] Received: 07/18/2020 0828 Clinic First Screen: Lila Arevalo Specimen: INDEPENDENT FREIGHT AGENT ThinPrep Vial Screening, Cervical 07/25/2020 12:59 PM SERVICE PARTS COORDINATOR [facility] INTERPRETATION/ RESULT NEGATIVE FOR INTRAEPITHELIAL LESION OR MALIGNANCY (NIL) (none) 07/25/2020 12:59 PM SERVICE PARTS COORDINATOR [facility] IMEN ADEQUACY Satisfactory for evaluation Endocervical component present 07/25/2020 12:59 PM SERVICE PARTS COORDINATOR [facility] HPV REQUEST HPV if ASCUS 07/25/2020 12:59 PM SERVICE PARTS COORDINATOR [facility] Date of LMP 07/09/2020 07/25/2020 12:59 PM SERVICE PARTS COORDINATOR [facility] Last Pap Date 07/23/17 07/25/2020 12:59 PM SERVICE PARTS COORDINATOR [facility] Last Pap Result NIL 12:59 PM SERVICE PARTS COORDINATOR [facility] Abnormal Pap or [place]arse[place] Bx in last 5 years No 07/25/2020 12:59 PM SERVICE PARTS COORDINATOR [facility] Menstrual Status Regular Periods 07/25/2020 12:59 PM SERVICE PARTS COORDINATOR [facility] Coarse[place] Bx Done Today No 07/25/2020 12:59 PM SERVICE PARTS COORDINATOR [facility] Additional Information None given 07/25/2020 12:59 PM SERVICE PARTS COORDINATOR [facility] Comment: Cytology is screened at [facility] - [address], [place] [address] and [facility] - [address], [place] [address] and [facility] - [address] [place] [address] Interpreted at [facility] - [address], [place] [address] Automated Review Successful 07/25/2020 12:59 PM SERVICE PARTS COORDINATOR [facility] Comment:Specimen processed s uccessfully by automated insulation machine operator device, ThinPrep Imaging System, [employer] Note The pap test is a screening technique, not a diagnostic procedure. It is used primarily to screen for squamous cancers and precursor lesions. Published studies have shown that it is subject to both false negative and false positive results. The pap test should not be used as the sole means to diagnose or exclude pre-malignant and malignant lesions. 07/25/2020 12:59 PM SERVICE PARTS COORDINATOR [facility] Other (Cervical) Non-Blood / Unknown 07/18/2020 8:15 AM SERVICE PARTS COORDINATOR 07/18/2020 8:28 AM SERVICE PARTS COORDINATOR us Amie Pugh NP PATHOLOGY/CYTOLOGY Final Result [facility] [address] [place] [address], [place] * ANTI HCV (04/11/2015 5:31 PM CDT) HEPATITIS C ANTIBODY Non-Reacti ve Non-Reacti ve 04/12/2015 1:31 PM CDT [facility] Blood specimen (specimen) BLOOD SPECIMEN / Unknown Venipuncture / Unknown 04/11/2015 5:31 PM CDT 04/11/2015 5:31 PM CDT Narrative [facility] - 04/12/2015 1:31 PM CDT Antibodies to HCV not detected; does not exclude the possibility of exposure to HCV. us Chinmay Kamara MD SEND OUTS Final Result [facility] [address] [place] [address], [place] from Last 3 Months or Most Recently Relevant to Health Maintenance Insurance [facility] Care Teams Car Seat Upholsterer Relationship Specialty Start Date End Date Sirena Langley MD [address] [place] [address] PCP - General Family Practice 09/07/17
--- OUTSIDE RECORDS SUMMARY | 2024-07-13 17:32 | XMS_ITS | Encounter Summary ---
Author Organization [place] Address [address] [place] [address] Care Team Providers Care Behavioral Psychologist Name Role Phone No Ref-Primary, Physician Primary Care Provider Carly Salazar MD Unavailable [phone] Samara Garcia T PA-C Unavailable [phone] Kathy Foster DO Unavailable [phone] PhilipTerrie onofre APRN BOOK JACKET COVER MACHINE OPERATOR Unavailable Un available Esther Mabry APRN BOOK JACKET COVER MACHINE OPERATOR Primary Care Provider Esther Mabry APRN BOOK JACKET COVER MACHINE OPERATOR Unavailable Samara Garcia T PA-C Unavailable [phone] Samara Garcia PA-C Unavailable [phone] Murali Villarreal MD Unavailable [phone] Murali Villarreal MD Unavailable [phone] Kathy Foster DO Unavailable [phone] Lore Leblanc APRN, CNM Unavailable + Carly Salazar MD Unavailable [phone] Kathy Foster DO Unavailable [phone] Lore Leblanc APRN, CNM Unavailable + Carly Salazar MD Unavailable Reason for Visit * Reason Onset Date Comments Appointment 02/18/2022 Encounter Details Date Type Department Care Team (Late st Contact Info) Description 02/18/2022 Telephone [facility] [address] [place] [phone] Carly Salazar MD [address] [place] [address] Appointment Social History Tobacco Use Types Packs/Day Years [...] PM CDT documented as of this encounter Miscellaneous Notes * Telephone Encounter - Natalie Henson - 02/18/2022 12:10 PM CDT Reason for Call: Other appointment Detailed comments: Patient needs 6 week post appointment around march 11. She would like to see Carly Salazar first available at this time was not until end march. Phone Number Patient can be reached at: Home number on file [phone] (home) Best Time: Anytime Can we leave a detailed message on this number? YES Call taken on 02/18/2022 at 12:10 PM by Natalie Henson documented in this encounter Plan of Treatment Not on file documented as of this encounter Visit Diagnoses Not on filedocumented in this encounter Additional Health Concerns Assessment Noted Time PHQ-9 Depression Total Score: 16 018 7:48 AM HEALTH EDITOR documented as of this encounter Care Teams Behavioral Psychologist Relationship Specialty Start Date End Date No Ref-Primary, Physician PCP - General 05/17/21 08/14/22 Esther Mabry, SURINDER BOOK JACKET COVER MACHINE OPERATOR [address] [place], [place] [address] PCP - General Internal Medicine 08/15/22 Carly Salazar MD [address] [place], [place] [address] Assigned OBGYN Provider 05/03/2207/03 Samara Garcia PA-C [address] [place] [address] Physician Slusher Operator Dermatology 03/31/22 [place] [address] [place], [place] [id number] managing director 03/31/22 Terrie Palacios APRN BOOK JACKET COVER MACHINE OPERATOR Assigned PCP 07/09/22 09/05/22 Esther Mabry, SURINDER BOOK JACKET COVER MACHINE OPERATOR [address] [place] [address] Assigned PCP 09/06/22 Samara Garcia PA-C [address] [place] [address] Assigned Surgical Provider 11/08/22 11/14/22 Samara Garcia PA-C [address] [place] [address] Assigned Surgical Provider 09/27/22 10/24/22 Murali Villarreal MD [address] [place] [address] Assigned Surgical Provider 10/25/22 11/07/22 Murali Villarreal MD [address] [place] [address] Assigned Surgical Provider 11/15/22 05/03/24 Kathy Foster DO [address] [address] Assigned OBGYN Provider 07/04/23 Lore Leblanc APRN CNM [address] [facility] [address] [place] [address] Assigned OBGYN Provider 07/25/23 Carly Salazar MD [address] [place] [address] managing director 08/31/23 Kathy Foster DO [address] [address] Assigned OBGYN Provider 09/04/23 Lore Leblanc APRN CNM [address] [place] [address] Assigned OBGYN Provider 09/25/23 Carly Salazar MD [address] [place] [address] Assigned OBGYN Provider 02/02/24 documented as of this encounter
--- OUTSIDE RECORDS SUMMARY | 2024-07-13 17:32 | XMS_ITS | Encounter Summary ---
Author Organization [facility] Address [address] [place] [address] Care Team Providers Care Leadership Development Consultant Name Role Phone No Ref-Primary, Physician Primary Care Provider Carly Salazar MD Unavailable [phone] Samara Garcia T PA-C Unavailable [phone] Kathy Foster DO Unavailable [phone] PhilipTerrie onofre APRN STAGE DIRECTOR Unavailable Un available Esther Mabry APRN STAGE DIRECTOR Primary Care Provider Esther Mabry APRN STAGE DIRECTOR Unavailable Samara Garcia T PA-C Unavailable [phone] [...] Care Team (Late st Contact Info) Description 03/31/2022 [facility] [address] [place] [phone] Danish Irvin Social History Tobacco Use Types Packs/Day Years Used Date Smoking Tobacco: Never Smokeless Tobacco: Never Alcohol Use Standard Drinks/Week Comments Not Currently 0 (1 standard drink = 0.6 oz pur e alcohol) PHQ-2 Answer Date Recorded PHQ-2 Score 0 03/25/2022 Comments No Sex and Gender Information Value [...] was confirmed or suspected to have Coronavirus/COVID-19? Unable to assess 03/31/2022 11:13 AM CDT documented as of this encounter Plan of Treatment Not on file documented as of this encounter Visit Diagnoses Not on filedocumented in this encounter Additional Health Concerns Assessment Noted Time PHQ-9 Depression Total Score: 3 03/25/20 22 9:52 AM CDT documented as of this encounter Care Teams Leadership Development Consultant Relationship Specialty Start Date End Date No Ref-Primary, Physician PCP - General 05/17/21 08/14/22 Esther Mabry, MEDICAL OFFICE TECHNICIAN STAGE DIRECTOR [address] [place] [address] PCP - General Internal Medicine 08/15/22 Carly Salazar MD [address] [place] [address] Assigned OBGYN Provider 05/03/2207/03 Samara Garcia PA-C [address] [place] [address] Physician Print Finishing Worker Dermatology 03/31/22 [place] [address] [place] [address] stacker tender 03/31/22 Terrie Palacios, MEDICAL OFFICE TECHNICIAN STAGE DIRECTOR Assigned PCP 07/09/22 09/05/22 Esther Mabry, MEDICAL OFFICE TECHNICIAN STAGE DIRECTOR [address] [place], [place] [address] Assigned PCP 09/06/22 Samara Garcia PA-C [address] [place] [address] Assigned Surgical Provider 11/08/22 11/14/22 Samara Garcia PA-C [address] [address] Assigned Surgical Provider 09/27/22 10/24/22 Murali Villarreal MD [address] [place] [address] Assigned Surgical Provider 10/25/22 11/07/22 Murali Villarreal MD [address] [place] [address] Assigned Surgical Provider 11/15/22 05/03/24 Kathy Foster DO [address] [place] [address] Assigned OBGYN Provider 07/04/23 Lore Leblanc APRN CN [address] [facility] [address] [place] [address] Assigned OBGYN Provider 07/25/23 Carly Salazar MD [address] [place] [address] stacker tender 08/31/23 Kathy Foster DO [address] [facility] [address] [place] [address] Assigned OBGYN Provider 09/04/23 Lore Leblanc APRN CN [address] [facility] [address] [place] [address] Assigned OBGYN Provider 09/25/23 Carly Salazar MD [address] [place] [address] Assigned OBGYN Provider 02/02/24 documented as of this encounter
--- OUTSIDE RECORDS SUMMARY | 2024-07-13 17:32 | XMS_ITS | Encounter Summary ---
Author Organization [place] Address [address] [place] [address] Care Team Providers Care Flat Spring Assembler Name Role Phone No Ref-Primary, Physician Primary Care Provider Kathy Fsoter DO Unavailable [phone] Carly Salazar MD Unavailable [phone] Kathy Foster DO Unavailable [phone] Carly Salazar MD Unavailable [phone] Samara Garcia PA-C Unavailable [phone] Kathy Foster DO Unavailable [phone] Terrie Palacios APRN FAMILY ASSISTANT Unavailable Un available Esther Mabry APRN FAMILY ASSISTANT Primary Care Provider Esther Mabry APRN FAMILY ASSISTANT Unavailable Samara Garcia PA-C Unavailable [phone] Samara Garcia PA-C Unavailable [phone] Murali Villarreal MD Unavailable +[phone] Murali Villarreal MD Unavailable +[phone] Kathy Foster DO Unavailable [phone] Lore Leblanc APRN CN Unavailable [phone] Carly Salazar MD Unavailable [phone] Kathy Foster DO Unavailable [phone] Lore Leblanc APRN CN Unavailable [phone] Carly Salazar MD Unavailable [phone] Encounter Details Date Type Department Care Team (Late st Contact Info) Description 05/24/2021 [facility] [address] [place] [address] Madhavi Rivas, RN Social History Tobacco Use Types Packs/Day Years Used Date Smoking Tobacco: Never Assessed Comments Unknown Sex and Gender Information Value Date Recorded Sex Assigned at Female 05/02/2022 10:06 AM CDT Legal Sex Female 3:33 PM CDT Gender Identity Female 05/02/2022 10:06 AM CDT Sexual Orientation Straight 05/02/2022 10 :06 AM CDT COVID-19 Exposure Response Date Recorded In the last month, have you been in contact with someone who was confirmed or suspected to have Coronavirus / COVID-19? Unable to assess 05/27/2021 3:30 PM MEDICAL CODING SPECIALIST documented as of this encounter Plan of Treatment Not on file documented as of this encounter Visit Diagnoses Not on filedocumented in this encounter Additional Health Concerns Assessment Noted Time PHQ-9 Depression Total Score: 16 018 7:48 AM MEDICAL CODING SPECIALIST documented as of this encounter Care Teams Flat Spring Assembler Relationship Specialty Start Date End Date No Ref-Primary, Physician PCP - General 05/17/21 08/14/22 Esther Mabry APRN FAMILY ASSISTANT [address] [place] [address] PCP - General Internal Medicine 08/15/22 Kathy Foster DO [address] [place] [address] Assigned OBGYN Provider 06/30/21 Carly Salazar MD [address] [place] [address] Assigned OBGYN Provider 08/04/21 Kathy Foster DO [address] [address] Assigned OBGYN Provider 09/01/21 Carly Salazar MD [address] [place] [address] Assigned OBGYN Provider 05/03/2207/03 Samara Garcia PA-C [address] [place] [address] Physician Cuff Runner Dermatology 03/31/22 [place] [address] [place] [address] folder stitcher operator 03/31/22 Terrie Palacios, SKATE SHOP ATTENDANT FAMILY ASSISTANT Assigned PCP 07/09/22 09/05/22 Esther Mabry, SKATE SHOP ATTENDANT FAMILY ASSISTANT [address] [place] [address] Assigned PCP 09/06/22 Samara Garcia PA-C [address] [place] [address] Assigned Surgical Provider 11/08/22 11/14/22 Samara Garcia PA-C [address] [place] [address] Assigned Surgical Provider 09/27/22 10/24/22 Murali Villarreal MD [address] [place] [address] Assigned Surgical Provider 10/25/22 11/07/22 Murali Villarreal MD [address] [place] [address] Assigned Surgical Provider 11/15/22 05/03/24 Kathy Foster DO [address] [address] Assigned OBGYN Provider 07/04/23 Lore Leblanc APRN CN [address] [place] [address] Assigned OBGYN Provider 07/25/23 Carly Salazar MD [address] [place] [address] folder stitcher operator 08/31/23 Kathy Foster DO [address] [address] Assigned OBGYN Provider 09/04/23 Lore Leblanc APRN CNM [address] [place] [address] Assigned OBGYN Provider 09/25/23 Carly Salazar MD [address] [place] [address] Assigned OBGYN Provider 02/02/24 documented as of this encounter
--- OUTSIDE RECORDS SUMMARY | 2024-07-13 17:32 | XMS_ITS | Encounter Summary ---
Author Organization [place] Address [address] [place] [address] Care Team Providers Care Beam Sealer Name Role Phone Samara Garcia PA-C Unavailable [phone] Kathy Foster DO Unavailable [phone] Esther Mabry STAGECRAFT TEACHER RECORD LIBRARIAN Primary Care Provider Esther Mabry APRN RECORD LIBRARIAN Unavailable Murali Villarreal MD Unavailable [phone] Carly Salazar MD Unavailable [phone] Kathy Foster DO Unavailable [phone] Lore Leblanc APRN CN Unavailable +[phone] Carly Salazar MD Unavailable [phone] Encounter Details Date Type Department Care Team (Late st Contact Info) Description 09/18/2023 [facility] Medical Advice [facility] [address] [facility] [address] [place] [address] Gertrude Ventura Social History Tobacco Use Types Packs/Day Years [...] documented as of this encounter Care Teams Beam Sealer Relationship Specialty Start Date End Date Esther Mabry APRN RECORD LIBRARIAN [address] [place] [address] PCP - General Internal Medicine 08/15/22 Samara Garcia, PASummerC [address] [place] [address] Physician Network Specialist Dermatology 03/31/22 [place] [address] [place] [address] candy dipper 03/31/22 Esther Mabry APRN RECORD LIBRARIAN [address] [place] [address] Assigned PCP 09/06/22 Murali Villarreal MD [address] [place] [address] Assigned Surgical Provider 11/15/22 05/03/24 Carly Salazar MD [address] [place] [address] candy dipper 08/31/23 Kathy Foster DO [address] [place] [address] Assigned OBGYN Provider 09/04/23 Lore Leblanc APRN CN [address] [place] [address] Assigned OBGYN Provider 09/25/23 Carly Salazar MD [address] [place] [address] Assigned OBGYN Provider 02/02/24 documented as of this encounter
--- OUTSIDE RECORDS SUMMARY | 2024-07-13 17:32 | XMS_ITS | Encounter Summary ---
Author Organization [place] Address [address] [place] [address] Care Team Providers Care Hooker On Name Role Phone No Ref-Primary, Physician Primary Care Provider Carly Salazar MD Unavailable [phone] Samara Garcia T PA-C Unavailable [phone] Kathy Foster DO Unavailable [phone] PhilipTerrie onofre APRN DURABILITY TECHNICIAN Unavailable Un available Esther Mabry APRN DURABILITY TECHNICIAN Primary Care Provider Esther Mabry APRN DURABILITY TECHNICIAN Unavailable Samara Garcia T PA-C Unavailable [phone] [...] Care Team (Late st Contact Info) Description 02/04/2022 MyC Medical Advice Initial Department Danish Irvin [...] Depression Total Score: 16 018 7:48 AM BIOCHEMISTRY TEACHER documented as of this encounter Care Teams Hooker On Relationship Specialty Start Date End Date No Ref-Primary, Physician PCP - General 05/17/21 08/14/22 Esther Mabry APRN DURABILITY TECHNICIAN [address] [place], [place] [address] PCP - General Internal Medicine 08/15/22 Carly Salazar MD [address] [place] [address] Assigned OBGYN Provider 05/03/2207/03 Samara Garcia PA-C [address] [place] [address] Physician Front Elevator Operator Dermatology 03/31/22 [place] [address] [facility] [place] [address] community engagement manager 03/31/22 Terrie Palacios, GRADES 6 THROUGH 8 TEACHER DURABILITY TECHNICIAN Assigned PCP 07/09/22 09/05/22 Esther Mabry, GRADES 6 THROUGH 8 TEACHER DURABILITY TECHNICIAN [address] [place] [address] Assigned PCP 09/06/22 Samara Garcia PA-C [address] [place] [address] Assigned Surgical Provider 11/08/22 11/14/22 Samara Garcia PA-C [address] [place] [address] Assigned Surgical Provider 09/27/22 10/24/22 Murali Villarreal MD [address] [place] [address] Assigned Surgical Provider 10/25/22 11/07/22 Murali Villarreal MD [address] [place] [address] Assigned Surgical Provider 11/15/22 05/03/24 Kathy Foster DO [address] [address] Assigned OBGYN Provider 07/04/23 Lore Leblanc APRN CN [address] [place] [address] Assigned OBGYN Provider 07/25/23 Carly Salazar MD [address] [place] [address] community engagement manager 08/31/23 Kathy Foster DO [address] [place] [address] Assigned OBGYN Provider 09/04/23 Lore Leblanc APRN CN [address] [place] [address] Assigned OBGYN Provider 09/25/23 Carly Salazar MD [address] [place] [address] Assigned OBGYN Provider 02/02/24 documented as of this encounter
--- OUTSIDE RECORDS SUMMARY | 2024-07-13 17:32 | XMS_ITS | Encounter Summary ---
Author Organization [place] Address [address] [facility] [address] Care Team Providers Care Side Trimmer Name Role Phone Samara Garcia PA-C Unavailable [phone] Kathy Foster DO Unavailable [phone] Esther Mabry CERTIFIED ENERGY MANAGER DATA REVIEW SPECIALIST Primary Care Provider [phone] Esther Mabry APRN DATA REVIEW SPECIALIST Unavailable [phone] Murali Villarreal MD Unavailable Carly Salazar MD Unavailable [phone] Lore Leblanc APRN CN Unavailable [phone] Carly Salazar MD Unavailable [phone] Encounter Details Date Type Department Care Team (Late st Contact Info) Description 01/04/2024 MyC Medical Advice [facility] [place] [address] [place] [address] Mala Funk, [facility] Social History Tobacco Use Types Packs/Day Years [...] documented as of this encounter Care Teams Side Trimmer Relationship Specialty Start Date End Date Esther Mabry APRN DATA REVIEW SPECIALIST [address] [place] [address] PCP - General Internal Medicine 08/15/22 Samara Garcia PASummerC [address] [place] [address] Physician Inside Meter Tester Dermatology 03/31/22 [place] [address] [place] [address] wheel inspector 03/31/22 Esther Mabry APRN DATA REVIEW SPECIALIST [address] [place] [address] Assigned PCP 09/06/22 Murali Villarreal MD [address] [place] [address] Assigned Surgical Provider 11/15/22 05/03/24 Carly Salazar MD [address] [place] [address] wheel inspector 08/31/23 Lore Leblanc APRN [facility] [address] [place] [address] Assigned OBGYN Provider 09/25/23 Carly Salazar MD [address] [place] [address] Assigned OBGYN Provider 02/02/24 documented as of this encounter
--- OUTSIDE RECORDS SUMMARY | 2024-07-13 17:32 | XMS_ITS | Clinical Summary ---
Author Organization [facility] Address [address] [place] [address] Care Team Providers Care Cutter Hand Name Role Phone Samara Garcia PA-C Unavailable Kathy Foster DO Unavailable Esther Mabry SUPERVISOR DATA PROCESSING CORE PASTER Primary Care Provider [phone] Esther Mabry APRN CORE PASTER Unavailable [phone] Carly Salazar MD Unavailable [phone] Carly Salazar MD Unavailable Allergies Active Allergy [...] TDAP (Adacel,Boostrix) 11/07/2021,03/01/2009 Td (Adult), Adsorbed 07/29/2018 Family History Medical History Relation Comments Heart Disease Maternal Grandfather Heart Disea se,NM, CAD Heart Disease Maternal Grandmother Heart Disea se,NM, CAD Factor V Leiden deficiency Mother Melanoma Mother Stage 4 Other - See Comments Mother Pituitary a denoma/Psychiatric illness,chronic anxiety Cancer Other 1 Cancer,FHx CA Diabetes Other 2 Diabetes,FHx Breast Cancer No family hx of Relation Status Comments Father Alive Maternal Grandfather Maternal Grandmother Mother Alive Other 1 Other 2 Social History Tobacco Use Types Packs/Day Years [...] PM CDT Pulse 100 06/12/2023 4:27 PM AIRBORNE ELECTRONICS ANALYST Temperature 36.6 C (97.9 F) 06/12/2023 4:27 PM AIRBORNE ELECTRONICS ANALYST Respiratory Rate 16 06/12/2023 4:27 PM AIRBORNE ELECTRONICS ANALYST Oxygen Saturation 100% 06/12/2023 4:27 PM AIRBORNE ELECTRONICS ANALYST Inhaled Oxygen Concentration - - Weight 75.8 kg (167 lb) 01/01/2024 2:29 PM CDT Height 165.1 cm (5' 5) 06/22/2023 10:51 AM AIRBORNE ELECTRONICS ANALYST Body Mass Index 27.79 06/22/2023 10:51 AM AIRBORNE ELECTRONICS ANALYST Plan of Treatment Health Maintenance Due Date Last Done Comments ADVANCE CARE PLANNING 1996 DEPRESSION ACTION PLAN 1996 PHQ-9 09/22/2022 03/25/2022, 06/09/2014, 11/08/2014, Additional history exists ANNUAL REVIEW OF HM ORDERS 07/30/2023 07/30/2022 YEARLY PREVENTIVE VISIT 08/15/2023 08/15/2022, 07/18 INFLUENZA VACCINE (#1) 2024 2 (Declined), 07/18/2020, 04/11/2019, Additional history exists OBGCT (OB) 03/21/2024 10/24/2021 GROUP B STREP SCREENING 06/13/2024 12/26/2021 PAP 06/24/2024 06/24/2021 DTAP/TDAP/TD IMMUNIZATION (9 - Td or Tdap) 11/08/2031 11/07/2021, 07/29/2018, 03/01/2009, Additional history exists HPV IMMUNIZATION Completed 03/06/2016, , 07/11/2015 MENINGITIS IMMUNIZATION Aged Out 07/23/2017 No l onger eligible based on patient's age to complete this topic HEPATITIS B IMMUNIZATION Completed 018, 09/07/2017, 08/05/2017, Additional history exists HEPATITIS C SCREENING Completed 12/02/2023, 021 HIV SCREENING Completed 12/02/2023, 06/13/2021 CHLAMYDIA SCREENING Discontinued 01/01/2024, 07/30/2022, 06/24/2021, Additional history exists MATERNAL SCREENING DISCUSSION Completed 01/01/2024, 08/01/2021, 07/04/2021 COVID-19 Vaccine Discontinued Pneumococcal Vaccine: Pediatrics (0 to 5 Years) and At-Risk Patients (6 to 49 Years) Aged Out No longer eligible based on patient's age to complete this topic RSV MONOCLONAL ANTIBODY Aged Out No l onger eligible based on patient's age to complete this topic RSV VACCINE (No Doses Required) Completed Procedures Procedure Name Priority Date/Time Associated Diagnosis Comments MICROBIOLOGY ISOLATE REFERRAL Routine 06/17/2024 5:54 PM AIRBORNE ELECTRONICS ANALYST CHLAMYDIA TRACHOMATIS PCR Routine 01/01/2024 3:37 PM [...] antepartum GYNECOLOGIC CYTOLOGY Routine 06/24/2021 4:39 PM AIRBORNE ELECTRONICS ANALYST Encounter for supervision of normal first in first trimester from Last 3 Months or Most Recently Relevant to Health Maintenance Results * (ABNORMAL) Microbiology Isolate Referral (06/17/2024 5:54 PM AIRBORNE ELECTRONICS ANALYST) Culture Streptococcus agalactiae (Group B Streptococcus)(A ) LENNY 06/19/2024 8:35 AM AIRBORNE ELECTRONICS ANALYST [facility] Comment:Organism identified by client. Swab VAGINAL STRUCTURE / Unknown Non-blood Collection / Unknown 06/17/2024 5:54 PM AIRBORNE ELECTRONICS ANALYST 06/17/2024 5:54 PM AIRBORNE ELECTRONICS ANALYST Narrative Organism Antibiotic Method Susceptibility Streptococcus agalactiae (Gr oup B Streptococcus) Penicillin LENNY <=0.03 ug/mL: Susceptible Streptococcus agalactiae (Gr oup B Streptococcus) Clindamycin LENNY <=0.06 ug/mL: Susceptible Streptococcus agalactiae (Gr oup B Streptococcus) Cefotaxime LENNY <=0.25 ug/mL: Susceptible Streptococcus agalactiae (Gr oup B Streptococcus) Ceftriaxone LENNY <=0.25 ug/mL: Susceptible Streptococcus agalactiae (Gr oup B Streptococcus) Vancomycin LENNY 0.5 ug/mL: Susceptible Rica Levy APRN CNM LAB - MICRO GENERAL ORD ERABLES Final Result [facility] Di[facility] [address] [facility] [place] [id number] * CHLAMYDIA TRACHOMATIS PCR (01/01/2024 3:37 PM CDT) Chlamydia trachomatis Negative Negative 01/02/2024 12:23 PM CDT [facility] Comment:A negative result by provider engagement executive mediated amplification does not preclude the presence of C. trachomatis infection because results are dependent on proper and adequate collection, absence of inhibitors and sufficient rRNA to be detected. Urine VOIDED URINE SPECIMEN / Unknown Non-blood Collection / Unknown 01/01/2024 3:37 PM CDT 01/01/2024 3:37 PM CDT Carly Salazar MD LAB - MICRO GENERAL ORDERABLE S Final Result [facility]. [facility] Di[facility] [address] [facility] [place] [address], [facility] * [employer] Non-Invasive Screening???Prequel (01/01/2024 3:25 PM CDT) Pathologist [facility] See Scanned Result [facility] NON-INVASIVE SCREENING PREQUEL-Scann ed 01/11/2024 8:48 AM CDT [facility] Blood BLOOD SPECIMEN / Unknown Venipuncture / Unknown 01/01/2024 3:25 PM CDT 01/01/2024 3:25 PM CDT Carly Salazar MD LAB - BLOOD ORDERABLES Final Result Performing Organization Address City/[facility]/ZIP Co de Phone Number [facility] [address] [place], [place] [id number] [place] [address] * HIV Antigen Antibody Combo (12/02/2023 9:19 AM CDT) [facility] HIV Antigen Antibody Combo Nonreactive Nonreactive 12/03/2023 3:57 PM CDT [facility] Comment:Negative HIV-1 p24 a ntigen and [...] - BLOOD ORDERABLES Final Result [facility] [address] [facility], [address] [place], [place] [id number] * Hepatitis C Screen Reflex to HCV RNA Quant and Genotype (12/02/2023 9:19 AM CDT) [facility] Hepatitis C Antibody Nonreactive Nonreactive 12/03/2023 3:41 [...] - BLOOD ORDERABLES Final Result [facility] [address] [facility], [address] [place] [address] * Group B strep PCR (12/26/2021 10:46 AM CDT) [facility] Group B Strep PCR Negative Negative 022 [...] LABORATORY - 12/27/2021 4:52 PM CDT The Cepheid Xpert GBS LB Assay, performed on the [employer] Systems, is a qualitative in vitro [...] or monitor treatment for GBS infections. The CepPovoid Xpert GBS LB Assay is intended for use in hospital, reference or state laboratory settings. The device is not intended for [id number] use. Carly Salazar MD LAB - MICRO GENERAL ORDERABLE S Final Result Performing Organization Address City/[facility]/ZIP Co de Phone Number [facility] Inf. Diseases Diag. [facility] [address] [facility] [place] [address], [place] [phone] * Glucose tolerance, gest screen, 1 hour (10/24/2021 12:11 PM CDT) Glu Gest Screen 1hr 50g 107 70 - 129 mg/dL 10/24/2021 12:13 PM CDT [facility] Blood STRUCTURE OF LEFT UPPER LIMB / Unknown Venipuncture / Unknown 10/24/2021 12:11 PM CDT 10/24/2021 12:12 PM CDT [facility] LABORATORY - 10/24/2021 12:13 PM CDT This is a screening test for Gestational Diabetes Mellitus. If results are 130 mg/dL or greater, a Standard 100 gram Gestational 3 hour Glucose Tolerance should be performed. Carly Salazar MD LAB - BLOOD ORDERABLES Final Result Performing Organization Address City/[facility]/ZIP Co de Phone Number [facility] [address] [facility], [address] [place] [address], [place] [phone] * Pap screen only - recommended age 21 - 24 years (06/24/2021 4:39 PM AIRBORNE ELECTRONICS ANALYST) Interpretation Negative for Intraepithelial Lesion or Malignancy (NILM) 06/28/2021 8:57 AM AIRBORNE ELECTRONICS ANALYST [facility] Comment Papanicolaou Test Limitations: Cervical cytology is a screening test with limited sensitivity, and regular screening is critical for cancer prevention. Pap tests are primarily effective for the diagnosis/prevent ion of squamous cell carcinoma, not adenocarcinoma or other cancers. 06/28/2021 8:57 AM AIRBORNE ELECTRONICS ANALYST [facility] Specimen Adequacy Satisfactory for evaluation, endocervical/blanc sformation zone component present 06/28/2021 8:57 AM AIRBORNE ELECTRONICS ANALYST [facility] Clinical Information 06/28/2021 8:57 AM AIRBORNE ELECTRONICS ANALYST [facility] Reflex Testing No 06/28/2021 8:57 AM AIRBORNE ELECTRONICS ANALYST [facility] Previous Abnormal? No 06/28/2021 8:57 AM AIRBORNE ELECTRONICS ANALYST [facility] Performing Labs The technical component of this testing was completed at [facility] 06/28/2021 8:57 AM AIRBORNE ELECTRONICS ANALYST [facility] Brushing CERVIX UTERI STRUCTURE / Unknown 06/24/2021 4:39 PM AIRBORNE ELECTRONICS ANALYST 06/24/2021 4:58 PM AIRBORNE ELECTRONICS ANALYST Kathy Foster DO LAB - BECHARLIE AP Final Res ult [facility] [address] [place] [address], [facility] [phone] from Last 3 Months or Most Recently Relevant to Health Maintenance Insurance [employer] [place] Project [employer] [facility] Address: [address] [address] [place] [address] MEDICAID [place] Advance Directives For more information, please contact: [phone] * Full Code (Latest Code Status on File) Date Activated Date Inactivated Comments 01/27/2022 4:34 PM 01/30/2022 4:03 PM All basic an d advanced life-sustaining interventions are performed as appropriate Question Answer Comments Code status determined by: Discussion with patie nt/ legal decision maker * Full Code Date Activated Date Inactivated Comments 01/26/2022 11:54 PM 01/27/2022 4:34 PM All basic a nd advanced life-sustaining interventions are performed as appropriate Question Answer Comments Code status determined by: Discussion with patie nt/ legal decision maker Care Teams Cutter Hand Relationship Specialty Start Date End Date Esther Mabry APRN CORE PASTER [address] [place] [address] PCP - General Internal Medicine 08/15/22 Samara Garcia PA-C [address] [place] [address] Physician Doper Dermatology 03/31/22 [place] [address] [place] [address] MD shearing machine tender 03/31/22 Esther Mabry APRN CORE PASTER [address] [place] [address] Assigned PCP 09/06/22 Carly Salazar MD [address] [place] [address] shearing machine tender 08/31/23 Carly Salazar MD [address] [place] [address] Assigned OBGYN Provider 02/02/24
--- OUTSIDE RECORDS SUMMARY | 2024-07-13 17:32 | XMS_ITS | Continuity of Care Document ---
Author Name [facility] User [email or web address] Address Unknown Organization Unknown Address Unknown Encounters FILTER APPLIED:Only known Encounters with Admission Date within the last 5 years Encounter Location Admission Discharge Billing Code Staff Rn Jesus Alberto salas Outpatient [facility]
--- OUTSIDE RECORDS SUMMARY | 2024-07-13 17:32 | XMS_ITS | Encounter Summary ---
Author Organization [place] Address [address] [place] [address] Care Team Providers Care Financial Services Consultant Name Role Phone No Ref-Primary, Physician Primary Care Provider Kathy Foster DO Unavailable [phone] Carly Salazar MD Unavailable [phone] Samara Garcia T PA-C Unavailable [phone] Kathy Foster DO Unavailable [phone] Terrie Palacios APRN [place] SCARFER TENDER Unavailable Un available Esther Mabry APRN [place] SCARFER TENDER Primary Care Provider Esther Mabry APRN [place] SCARFER TENDER Unavailable Samara Garcia T PA-C Unavailable [phone] Samara Garcia PA-C Unavailable [phone] Murali Villarreal MD Unavailable [phone] Murali Villarreal MD Unavailable [phone] Kathy Foster DO Unavailable [phone] Lore Leblanc APRN, CNM Unavailable [phone] Carly Salazar MD Unavailable [phone] Kathy Foster DO Unavailable [phone] Lore Leblanc APRN, CNM Unavailable [phone] Carly Salazar MD Unavailable [phone] Encounter Details Date Type Department Care Team (Late st Contact Info) Description 09/02/2021 MyC Medical Advice [facility] [address] [place] [id number] Carly Salazar MD [address] [place] [address] Social History Tobacco Use Types Packs/Day Years [...] or suspected to have Coronavirus / COVID-19? No / Unsure 08/27/2021 7:57 AM FUNERAL SERVICE MANAGER documented as of this encounter Plan of Treatment Not on file documented as of this encounter Visit Diagnoses Not on filedocumented in this encounter Additional Health Concerns Assessment Noted Time PHQ-9 Depression Total Score: 16 018 7:48 AM FUNERAL SERVICE MANAGER documented as of this encounter Care Teams Financial Services Consultant Relationship Specialty Start Date End Date No Ref-Primary, Physician PCP - General 05/17/21 08/14/22 Esther Mabry APRN [place] SCARFER TENDER [address] [place] [address] PCP - General Internal Medicine 08/15/22 Kathy Foster DO [address] [address] Assigned OBGYN Provider 09/01/21 Carly Salazar MD [address] [place] [address] Assigned OBGYN Provider 05/03/2207/03 Samara Garcia PA-C [address] [place] [address] Physician Celebrity Chef Entrepreneur Media Personality Dermatology 03/31/22 [place] [address] [place] [address] overnight stocker 03/31/22 Terrie Palacios, CABLE INSTALLATION MANAGER [place] SCARFER TENDER Assigned PCP 07/09/22 09/05/22 Esther Mabry, CABLE INSTALLATION MANAGER [place] SCARFER TENDER [address] [place] [address] Assigned PCP 09/06/22 Samara Garcia PA-C [address] [place] [address] Assigned Surgical Provider 11/08/22 11/14/22 Samara Garcia PA-C [address] [address] Assigned Surgical Provider 09/27/22 10/24/22 Murali Villarreal MD [address] [place] [address] Assigned Surgical Provider 10/25/22 11/07/22 Murali Villarreal MD [address] [place] [address] Assigned Surgical Provider 11/15/22 05/03/24 Kathy Foster DO [address] [address] Assigned OBGYN Provider 07/04/23 Lore Leblanc APRN CN [address] [place], [place] [address] [address] [place] [address] Assigned OBGYN Provider 07/25/23 Carly Salazar MD [address] [place] [address] overnight stocker 08/31/23 Kathy Foster DO [address] [address] Assigned OBGYN Provider 09/04/23 Lore Leblanc APRN CN [address] [place], [place] [address] [address] [place] [address] Assigned OBGYN Provider 09/25/23 Carly Salazar MD [address] [place] [address] Assigned OBGYN Provider 02/02/24 documented as of this encounter
--- OUTSIDE RECORDS SUMMARY | 2024-07-13 17:32 | XMS_ITS | Encounter Summary ---
Author Organization [place] Address [address] [place] [address] Care Team Providers Care Child Health Associate Name Role Phone No Ref-Primary, Physician Primary Care Provider Carly Salazar MD Unavailable [phone] Samara Garcia T PA-C Unavailable [phone] Kathy Foster DO Unavailable [phone] PhilipTerrie onofre APRN DIRECTOR OF ACCOUNTS RECEIVABLE Unavailable Un available Esther Mabry APRN DIRECTOR OF ACCOUNTS RECEIVABLE Primary Care Provider Esther Mabry APRN DIRECTOR OF ACCOUNTS RECEIVABLE Unavailable Samara Garcia T PA-C Unavailable [phone] [...] Care Team (Late st Contact Info) Description 03/04/2022 MyC Medical Advice [facility] [address] [place] [address] Carly Salazar MD [address] [place] [address] Social History Tobacco Use Types Packs/Day Years [...] Depression Total Score: 16 018 7:48 AM 3RD PRESSMAN documented as of this encounter Care Teams Child Health Associate Relationship Specialty Start Date End Date No Ref-Primary, Physician PCP - General 05/17/21 08/14/22 Esther Mabry, OIL BURNER DIRECTOR OF ACCOUNTS RECEIVABLE [address] [place] [address] PCP - General Internal Medicine 08/15/22 Carly Salazar MD [address] [place] [address] Assigned OBGYN Provider 05/03/2207/03 Samara Garcia, PASummerC [address] [place] [address] Physician Steam Tender Dermatology 03/31/22 [place] [address] [place] [address] pharmacy salesperson 03/31/22 Terrie Palacios, OIL BURNER DIRECTOR OF ACCOUNTS RECEIVABLE Assigned PCP 07/09/22 09/05/22 Esther Mabry, OIL BURNER DIRECTOR OF ACCOUNTS RECEIVABLE [address] [place] [address] Assigned PCP 09/06/22 Samara Garcia PA-C [address] [place] [address] Assigned Surgical Provider 11/08/22 11/14/22 Samara Garcia PA-C [address] [place] [address] Assigned Surgical Provider 09/27/22 10/24/22 Murali Villarreal MD [address] [place] [address] Assigned Surgical Provider 10/25/22 11/07/22 Murali Villarreal MD [address] [place] [address] Assigned Surgical Provider 11/15/22 05/03/24 Kathy Foster DO [address] [address] Assigned OBGYN Provider 07/04/23 Lore Leblanc APRN CN [address] [facility] [address] [place] [address] Assigned OBGYN Provider 07/25/23 Carly Salazar MD [address] [place] [address] pharmacy salesperson 08/31/23 Kathy Foster DO [address] [address] Assigned OBGYN Provider 09/04/23 Lore Leblanc APRN CN [address] [facility] [address] [place] [address] Assigned OBGYN Provider 09/25/23 Carly Salazar MD [address] [place] [address] Assigned OBGYN Provider 02/02/24 documented as of this encounter
--- OUTSIDE RECORDS SUMMARY | 2024-07-13 17:32 | XMS_ITS | Encounter Summary ---
Author Organization [place] Address [address] [place] [address] Care Team Providers Care Service Support Representative Name Role Phone Carly Salazar MD Unavailable [phone] Samara Garcia PA-C Unavailable [phone] Kathy Foster DO Unavailable [phone] Esther Mabry HOTEL DESK CLERK PROSECUTING ATTORNEY Primary Care Provider Esther Mabry APRN PROSECUTING ATTORNEY Unavailable Murali Villarreal MD Unavailable [phone] Kathy Foster DO Unavailable [phone] Lore Leblanc APRNM Unavailable + Carly Salazar MD Unavailable [phone] Kathy Foster DO Unavailable [phone] Lore Leblanc APRNM Unavailable + Carly Salazar MD Unavailable [phone] Encounter Details Date Type Department Care Team (Late st Contact Info) Description 06/29/2023 [facility] [address] [place] [address] Lore Leblanc APRN CNM [address] [facility] [address] [place] [address] Social History Tobacco Use Types Packs/Day Years [...] encounter Miscellaneous Notes * Telephone Encounter - Chel Fisher RN - 07/02/2023 2:31 PM CALIBRATION TECHNICIAN Pt advised via my chart. Yahaira Fisher RN BRATION TECHNICIAN * Telephone Encounter - Shannan Mirza CNM - 07/02/2023 2:23 PM CST I'd recommend repeat if she is having any abdominal pain or pelvic concerns. Shannan Mirza APRN, CNM BRATION TECHNICIAN * Telephone Encounter - Chel Fisher RN - 06/29/2023 12:20 PM CALIBRATION TECHNICIAN Please address the my chart message. Yahaira Fisher RN BRATION TECHNICIAN documented in this encounter Plan of Treatment Not on file documented as of this encounter Visit Diagnoses Not on filedocumented in this encounter Additional Health Concerns Assessment Noted Time PHQ-9 Depression Total Score: 3 03/25/20 22 9:52 AM CDT documented as of this encounter Care Teams Service Support Representative Relationship Specialty Start Date End Date Esther Mabry, HOTEL DESK CLERK PROSECUTING ATTORNEY [address] [place] [address] PCP - General Internal Medicine 08/15/22 Carly Salazar MD [address] [place] [address] Assigned OBGYN Provider 05/03/2207/03 Samara Garcia PA-C [address] [place], [place] [id number] Physician Pediatric Nephrologist Dermatology 03/31/22 [place] [address] [place], [place] [id number] tire and lube technician 03/31/22 Esther Mabry, HOTEL DESK CLERK PROSECUTING ATTORNEY [address] [place] [address] Assigned PCP 09/06/22 Murali Villarreal MD [address] [place] [address] Assigned Surgical Provider 11/15/22 05/03/24 Kathy Foster DO [address] [address] Assigned OBGYN Provider 07/04/23 Lore Leblanc APRN [facility] [address] [place] [address] Assigned OBGYN Provider 07/25/23 Carly Salazar MD [address] [place] [address] tire and lube technician 08/31/23 Kathy Foster DO [address] [address] Assigned OBGYN Provider 09/04/23 Lore Leblanc APRN [facility] [address] [place] [id number] Assigned OBGYN Provider 09/25/23 Carly Salazar MD [address] [place] [address] Assigned OBGYN Provider 02/02/24 documented as of this encounter
--- OUTSIDE RECORDS SUMMARY | 2024-07-13 17:32 | XMS_ITS | Encounter Summary ---
Author Organization [place] Address [address] [place] [address] Care Team Providers Care Corrosion Control Technician Name Role Phone Carly Salazar MD Unavailable [phone] Samara Garcia PA-C Unavailable [phone] Kathy Foster DO Unavailable [phone] Esther Mabry APRN DAIRY CHEMIST Primary Care Provider Esther Mabry APRN DAIRY CHEMIST Unavailable Murali Villarreal MD Unavailable [phone] Kathy Foster DO Unavailable [phone] Lore Leblanc APRN CN Unavailable + 2 Carly Salazar MD Unavailable [phone] Kathy Foster DO Unavailable [phone] Lore Leblanc APRN CN Unavailable + 2 Carly Salazar MD Unavailable [phone] Reason for Visit * Reason Onset Date Comments Derm Problem 12/03/2022 Breast Problem 12/03/2022 Encounter Details Date Type Department Care Team (Late st Contact Info) Description 12/03/2022 MyC Medical Advice [address] [place] [address] Esther Mabry APRN DAIRY CHEMIST [address] [place] [address] Derm Problem; Breast Problem Social History Tobacco Use Types [...] suspected to have Coronavirus/COVID-19? No / Unsure 12/01/2022 10:07 AM CDT documented as of this encounter Miscellaneous Notes * Telephone Encounter - Terrie Starkey RN - 12/03/2022 3:55 PM CDT See mychart message. * Telephone Encounter - Esther Mabry APRN CNP - 12/03/2022 3:49 PM CDT If it is very painful to nurse, I would refrain from nursing right now. If symptoms not improved in1-2 days, would then recommend RTC. * Telephone Encounter - Terrie Starkey RN - 12/03/2022 3:28 PM CDT See her new message. Please advise. * Telephone Encounter - Terrie Starkey RN - 12/03/2022 2:12 PM CDT Sent message back. * Telephone Encounter - Esther Mabry APRN CNP - 12/03/2022 1:06 PM CDT Since she has only been on antibiotics for 2 days, I do not think she needs to be seen again quite yet. Her message makes it sound like she is nursing currently with the infection? She was told by UCnot to nurse while she has infection. Also, since this is her second episode in the past 2 months, she should make appt to be seen by SEXTON HELPER. * Telephone Encounter - Terrie Starkey RN - 12/03/2022 12:33 PM CDT See mychart message. See UC notes from 12/01. Please advise if needs ADS or if should send Evisit? documented in this encounter Plan of Treatment Not on file documented as of this encounter Visit Diagnoses Not on filedocumented in this encounter Additional Health Concerns Assessment Noted Time PHQ-9 Depression Total Score: 3 03/25/20 22 9:52 AM CDT documented as of this encounter Care Teams Corrosion Control Technician Relationship Specialty Start Date End Date Esther Mabry APRN CNP [address] [place] [address] PCP - General Internal Medicine 08/15/22 Carly Salazar MD [address] [place] [address] Assigned OBGYN Provider 05/03/2207/03 Samara Garcia PA-C [address] [place] [address] Physician Media/Instructional Designer Dermatology 03/31/22 [place] [address] [place] [address] customer sales distributor 03/31/22 Esther Mabry, WRITING MANAGER DAIRY CHEMIST [address] [place] [address] Assigned PCP 09/06/22 Murali Villarreal MD [address] [place] [address] Assigned Surgical Provider 11/15/22 05/03/24 Kathy Foster DO [address] [address] Assigned OBGYN Provider 07/04/23 Lore Leblanc APRN [facility] [address] [place] [address] Assigned OBGYN Provider 07/25/23 Carly Salazar MD [address] [place] [address] customer sales distributor 08/31/23 Kathy Foster DO [address] [address] Assigned OBGYN Provider 09/04/23 Lore Leblanc APRN CNM [facility] [address] Assigned OBGYN Provider 09/25/23 Carly Salazar MD [address] [place] [address] Assigned OBGYN Provider 02/02/24 documented as of this encounter
--- OUTSIDE RECORDS SUMMARY | 2024-07-13 17:32 | XMS_ITS | Encounter Summary ---
Author Organization [place] Address [address] [place] [address] Care Team Providers Care At Risk Paraprofessional Name Role Phone No Ref-Primary, Physician Primary Care Provider Kathy Foster DO Unavailable [phone] Carly Salazar MD Unavailable [phone] Kathy Foster DO Unavailable [phone] Carly Salazar MD Unavailable [phone] Samara Garcia PA-C Unavailable [phone] Kathy Foster DO Unavailable [phone] Terrie Palacios APRN LIQUOR BRIDGE OPERATOR HELPER Unavailable Un available Esther Mabry APRN LIQUOR BRIDGE OPERATOR HELPER Primary Care Provider Esther Mabry APRN LIQUOR BRIDGE OPERATOR HELPER Unavailable Samara Garcia PA-C Unavailable [phone] Samara Garcia PA-C Unavailable [phone] Murali Villarreal MD Unavailable +[phone] Murali Villarreal MD Unavailable +[phone] Kathy Foster DO Unavailable [phone] Lore Leblanc APRN CN Unavailable [phone] Carly Salazar MD Unavailable Kathy Foster DO Unavailable [phone] Lore Leblanc APRN [facility] Unavailable +[phone] Carly Salazar MD Unavailable [phone] Reason for Visit * Reason Onset Date Comments MyChart Communication 07/18/2021 Encounter Details Date Type Department Care Team (Late st Contact Info) Description 07/18/2021 MyC Medical Advice [facility] [place] [address] [place] [address] Kathy Foster DO [address] [place] [address] MyChart Communication Social History Tobacco Use Types Packs/Day Years [...] have Coronavirus / COVID-19? No / Unsure 07/09/2021 8:18 AM VICE PRESIDENT OF FINANCE documented as of this encounter Miscellaneous Notes * Telephone Encounter - Madhavi Rivas RN - 07/18/2021 2:20 PM CST How do you want us to set up the spouses test? Genetic counseling referral? Madhavi Rivas RN PRESIDENT OF FINANCE * Telephone Encounter - Madhavi Rivas RN - 07/18/2021 11:14 AM CST Please see mychart. Madhavi Rivas RN PRESIDENT OF FINANCE documented in this encounter Plan of Treatment Not on file documented as of this encounter Visit Diagnoses Not on filedocumented in this encounter Additional Health Concerns Assessment Noted Time PHQ-9 Depression Total Score: 16 018 7:48 AM VICE PRESIDENT OF FINANCE documented as of this encounter Care Teams At Risk Paraprofessional Relationship Specialty Start Date End Date No Ref-Primary, Physician PCP - General 05/17/21 08/14/22 Esther Mabry APRN CNP [address] [place] [address] PCP - General Internal Medicine 08/15/22 Kathy Foster DO [address] [address] Assigned OBGYN Provider 06/30/21 Carly Salazar MD [address] [place] [address] Assigned OBGYN Provider 08/04/21 Kathy Foster DO [address] [address] Assigned OBGYN Provider 09/01/21 Carly Salazar MD [address] [place] [address] Assigned OBGYN Provider 05/03/2207/03 Samara Garcia PA-C [address] [place] [address] Physician Housing Case Manager Dermatology 03/31/22 [place] [address] [facility] [place] [address] dip unit operator 03/31/22 Terrie Palacios, ARTIFICIAL STONE SETTER LIQUOR BRIDGE OPERATOR HELPER Assigned PCP 07/09/22 09/05/22 Esther Mabry, ARTIFICIAL STONE SETTER LIQUOR BRIDGE OPERATOR HELPER [address] [place], [place] [address] Assigned PCP 09/06/22 Samara Garcia PA-C [address] [place] [address] Assigned Surgical Provider 11/08/22 11/14/22 Samara Garcia PA-C [address] [address] Assigned Surgical Provider 09/27/22 10/24/22 Murali Villarreal MD [address] [place] [address] Assigned Surgical Provider 10/25/22 11/07/22 Murali Villarreal MD [address] [place] [address] Assigned Surgical Provider 11/15/22 05/03/24 Kathy Foster DO [address] [address] Assigned OBGYN Provider 07/04/23 Lore Leblanc APRN CN [address] [address] [place] [address] Assigned OBGYN Provider 07/25/23 Carly Salazar MD [address] [place] [address] dip unit operator 08/31/23 Kathy Foster DO [address] [address] Assigned OBGYN Provider 09/04/23 Lore Leblanc APRN CN [facility] [address] [place] [address] Assigned OBGYN Provider 09/25/23 Carly Salazar MD [address] [place] [address] Assigned OBGYN Provider 02/02/24 documented as of this encounter
--- NOTE | 2024-07-13 19:02 | P.LDBA_ITS ---
Subjective History of Present Illness Date Seen: 07/13/24 Narrative: Patient is being admitted to Labor and Delivery for labor. She is a 29 year old at 40.2 weeks gestation. Her full history and physical was dictated by Barbie Levy CNM on 06/24/24. Please see this for details. On admission patient is refusing placement of saline lock. Strongly encouraged her to have IV placed. Patient feels she is aware of risks and states she is open to placement if things start to look worrisome. Consulted with Dr. Ohara to discuss with patient as well, see her note. Specific Issues/Plans Partner: Familia Son: Norah. Baby: Girl! Mina Transfer at 16 wks from [facility] H&P by ROCIO Ochoa on 06/24/2024 #Previous emergency C/S for failed vacuum, arrest of descent, inadequate pain relief from epidural needed general desires TOLAC OB consult: scheduled 05/18 Records scanned. Chance of successful : 64% Consent form reviewed and signed on 05/18/2024 Desires unmedicated delivery: OK w/ continuous monitoring and saline lock reviewed on 05/18/2024. Declined 36 week US for EFW. #Leonora Jeffrey had complete work up last including echo #childhood asthma, no meds for many years #Anemia 36w-10.7 hgb, ferritin 5.62; unable to tolerate PO iron supplements of many types (known from last ); will increase food intake # plan-reviewed that continuous monitoring and a saline lock are required with TOLACs here, which was indicated on the TOLAC consult she signed. While we would not force her to do them, we do encourage them. Reviewed again reasons why they are recommended. She states the IV seems it will bother her and the continuous monitoring seems to lead to over-intervention. Reassured her that the midwives will try to protect against over-intervention per usual. #GBS positive- not planning to treat Declination form given 06/24, returned and signed OB Labs: ? Blood type: O+, antibody screen negative. ? Hgb: 12.8 ? Platelets: 243 ? Rubella: Immune ? Varicella: not tested RPR: non-reactive ? HBsAg: non-reactive ? Hep C: negative HIV: negative? UC: negative GC/Chlamydia: negative/negative ? Pap (07/12/21): negative ? Genetic screening: drawn, NIPT results not in records ? IMAGING: ? 1st trimester: Single live intrauterine EDC by LMP consistent with today's ultrasound EDC. Recommend EDC 07/11/24. Small MAINOR anteriorly and laterally Anatomy: 02/22/2024: Normal OB ultrasound exam with concordance of clinical and sonographic dating. No intrinsic abnormalities noted on anatomic survey. COVID: declined Flu: declined TDAP: Declined on 05/18/2024 RSV: Declined on 05/18/2024 OB - Problem Based A/P Additional Plan (1) Encounter for trial of labor: Status: Acute (2) Pain during labor: Status: Acute (3) 40 weeks gestation of : Status: Acute (4) Hx of section: Status: Acute Plan Assessment:?? at 40.2 weeks gestation?? GBS positive? Patient is coping well with challenges of labor.?? Labor type: Spontaneous, Early labor? Category 1 FHR pattern.? One elevated BP on admission, denies DIAMOND, visual changes or right upper abdomen pain complicated by: Previous emergency C/S desiring TOLAC, Leonora Danlos, Anemia, GBS positive declining treatment, hx of asthma as child, Plan:?? * ?Admit to L & D? * IV access: recommended SL per policy, patient is refusing placement at this time. See Dr. Ohara's note. Has signed an AMA form for this refusal * Monitoring per policy: continuous ? * Candidate for analgesia of choice.? Planning nothing for pain management * Expectant management at this time * GBS positive, not planning to treat * Monitor blood pressures. Consider labs if continue to be elevated.? * Patient encouraged to reposition and ambulate to promote physiologic labor and . * Anticipate ? Delivery/Labor/Induction Plan Plan: expectant management OB Exam Physical Exam Vital signs: Pulse BP Pulse Ox 100 138/77 100 07/13/24 18:16 07/13/24 18:16 07/13/24 18:12 Narrative: Vitals Reviewed Constitutional:? Alert and oriented x3 HEENT:? Normocephalic, atraumatic Neck:? Supple Lungs:? Clear to auscultation bilaterally Heart:? Regular rate and rhythm, no murmur, rub or gallop Abdomen:? Soft, nontender, and gravid. Vertex by Varinder's, confirmed with cerv ical exam. Extremities:? No edema or erythema Cervix: 5 cm/90%/0 station/vertex per RN NST: 150 bpm/moderate variability/+accelerations/-decelerations/moderate contractions Membranes: intact Detailed Labor and Delivery Exam Patient Gravid: Yes
--- NOTE | 2024-07-13 19:29 | P.OBCN_ITS ---
OB - CN: HPI Date of Consult Date Seen: 07/13/24 Consult date: 07/13/24 Requesting Physician: Daquan Greer CNM Primary Care Provider: Not a Local Provider Consult Narrative Narrative: The patient is a 29 year old -0-0-1 at 40 2/7 weeks gestation that was admitted to the Center on 07/13/24 for labor. She has a history of for after failed vacuum assisted vaginal delivery in the setting of arrest of descent. She has opted for TOLAC. Recommendations surrounding care of laboring patients in this situation TOLAC have previously been discussed with her, and our institutional TOLAC form has been signed with her. At this time, she refuses IV placement; she voices a desire to avoid treating her labor as high risk and has previously stated that this IV placement has been uncomfortable for her. [id number]: Familia Son: Norah. Baby: Girl! Mina Transfer at 16 wks from [facility] H&P by ROCIO Ochoa on 06/24/2024 #Previous emergency C/S for failed vacuum, arrest of descent, inadequate pain relief from epidural needed general desires TOLAC OB consult: scheduled 05/18 Records scanned. Chance of successful : 64% Consent form reviewed and signed on 05/18/2024 Desires unmedicated delivery: OK w/ continuous monitoring and saline lock reviewed on 05/18/2024. Declined 36 week US for EFW. #Leonora Jeffrey had complete work up last including echo #childhood asthma, no meds for many years #Anemia 36w-10.7 hgb, ferritin 5.62; unable to tolerate PO iron supplements of many types (known from last ); will increase food intake # plan-reviewed that continuous monitoring and a saline lock are required with TOLACs here, which was indicated on the TOLAC consult she signed. While we would not force her to do them, we do encourage them. Reviewed again reasons why they are recommended. She states the IV seems it will bother her and the continuous monitoring seems to lead to over-intervention. Reassured her that the midwives will try to protect against over-intervention per usual. #GBS positive- not planning to treat Declination form given 06/24, returned and signed History History 2 Elective abortions Para 1 Spontaneous abortions Hx # Term Pregnancies 1 Ectopic pregnancies Hx # Pregnancies Multiple births Number of Living Children 1 Past Pregnancies Del. Date GA/Weeks Outcome Route wt Inf Gender Labor Lgth Anesthesia Location Provider Compli 01/27/22 live - full term low trans verse vacuum extraction 8 lb 9 oz Male Danish silva Delivery Date: 01/27/22 Last Updated by: Valerie Michelle ~ PATCHING MACHINE OPERATOR, PATCHING MACHINE OPERATOR Induction ,failed epidural, failed vacuum attempt, emergency Labs GBS status: positive OB Labs: Lab Assessment Start: 07/13/24 18:51 Freq: ONCE Status: Complete Protocol: PC.OBGBS Activity Type Activity Date Activity User E-sign Co-sign Detail Recorded Client Recorded Date Recorded By Document 07/13/24 19:02 JAINISM No Response 07/13/24 19:03 JAINISM 07/13/24 19:02 Lab Assessment GBS Status positive Is Patient Allergic to Penicillin? No Treatment Required OK Are Labs Available Yes Maternal Blood Type O Maternal RH Factor Positive Evaluate Maternal Rubella Immune Status Immune Hepatitis B Surface Antigen Negative Maternal HIV Status Negative Maternal Syphillis (RPR) Status Negative PFSH PFSH Medical History (Updated 05/06/24 @ 09:02 by Christine Apple CNM) Depression ?F32.A - Depression, unspecified (ICD-10) Delivery by emergency section ?O99.892 - Other specified diseases and conditions complicating childbirth (ICD-10) Asthma ?J45.909 - Unspecified asthma, uncomplicated (ICD-10) Surgical History (Updated 01/27/24 @ 21:23 by Daquan Greer CNM) History of tonsillectomy and adenoidectomy ?Z90.89 - Acquired absence of other organs (ICD-10) Family History (Updated 01/27/24 @ 21:29 by Daquan Greer CNM) Mother Melanoma Factor V deficiency Pituitary adenoma Anxiety Maternal Grandmother Cardiovascular disease Myocardial infarction Maternal Grandfather Cardiovascular disease Myocardial infarction Social History (Updated 06/24/24 @ 12:49 by Rica Levy CNM) Narrative: SOCIAL? ? Education: Associates degree? Work: Stay at home mom? Partner:. 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 ? Lives with: Familia and 2 yr old ? Pets: 3 cats, changes cat litter boxes Abuse: Denies past Safe at home with current partner ? Special Diet: Denies? ? Ok with a blood transfusion: yes ? Culture or buddhism beliefs: denies ? ?? RISK FACTORS? ? Exercise Times/wk: walking and yoga 5 times a week? ? Depression/Anxiety: as a teen? ? Previous Treatments medication as a teen, nothi ng since? Therapy denies Seat Belt Use: Routinely? Smoking: Denies past/present Alcohol/day: Denies while ? ?No use when not Caffeine: one cup of coffee a day? Drug Use: Denies past/present ? What is your current living situation?: I presently have a place to live Problems where you live: no known problems In the past 12 months, utilities in danger of being shut off: no In past 12 months, lack of transportation kept you from medical appts, meetings, work, or getting things needed for daily living: no In the past 12 mos, have been you worried that your food would run out before you had money to buy more?: never true In the past 12 mos, the food you bought just didn't last and you didn't have money to buy more?: never true Smoking Status: Never smoker How often does anyone, including family, friends and others, physically hurt you : never How often does anyone, including family, friends and others, insult or talk down to you: never How often does anyone, including family, friends and others, threaten you with harm: never How often does anyone, including family, friends and others, scream or curse at you: never Meds Home Medications and Allergies Home Medications ?Medication ?Instructions ?Recorded ?Confirmed ?Type RGI40-RE 400 mcg-om3 35 mg-dha 25 1 tab PO DAILY PRN 01/27/24 07/13/24 History mg-epa 5 mg-fish oil chewable tablet Allergies Allergy/AdvReac Type Severity Reaction Status Date / Time amoxicillin AdvReac Mild Rash Verified 07/08/24 10:13 OB - H&P: Exam Physical Exam: Vital signs: Pulse BP Pulse Ox 100 138/77 100 07/13/24 18:16 07/13/24 18:16 07/13/24 18:12 Narrative: Physical exam: Vitals as noted above. General: Walking around her room, pausing for contractions OB - CN: A/P Assessment and Plan (1) : Status: Acute (2) Hx of section: Status: Acute Plan Desires TOLAC. I again recommended IV placement. I explained that, in the case of uterine rupture, status often declines abruptly and does not recover, requiring emergent delivery. In that case, we would not be able to proceed without an IV, and this would result in a delay of care. In addition, should hemorrhage result from uterine rupture, we would not have ready IV access for transfusion which could be imminently life-threatening to her. I reinforced that decision not to have an IV is not consistent with our recommendations, and poses a significant risk to her in her fetus. Despite these recommendations, she declines IV placement at this time, but may reconsider should her status change. She signed a form indicating that she understood the risks of this decision and wished to proceed without an IV. She is accepting of type and screen and complete blood count testing. GLASS SANDER BELT was informed of the situation at hand.
[2024-07-13 19:46] LABS: Basophils Percent Auto 0.1 % (0.0-3.0); Eosinophils Percent Auto 0.4 % (0.0-7.0); Hematocrit 35.8 % (33.0-51.0); Hemoglobin* 11.6 gm/dL (12.0-16.0); Immature Granulocytes Pct Auto 2.2 %; Lymphocytes Percent Auto 10.3 % (20-44); Mean Corpuscular HGB Conc 32 gm/dL (32-36); Mean Corpuscular Hemoglobin 28 pg (26-34); Mean Corpuscular Volume 86 fL (80-100); Monocytes Percent Auto 8.5 % (0.0-11.0); Neutrophils Percent Auto 78.5 % (42.0-72.0); Platelet Count* 251 K/uL (140-440); RDW Coefficient of Variation % 13.3 % (11.5-15.5); Red Blood Count 4.18 m/uL (4.00-5.20); White Blood Count* 16.54 K/uL (4.50-11.00)
[2024-07-13 19:49] LABS: Slide Review Reflex No
--- NOTE | 2024-07-13 22:19 | PM.OBPNL ---
Subjective Date Seen: 07/13/24 Narrative: ?Liliya is coping well with labor pain/contractions. ?Familia is with her for support. ?She would like to continue with repositioning and relaxation for comfort and pain management.?She reports feeling stronger contractions and some nausea at this time. Does not desire a cervical exam at this time. Objective Exam: VSS, afebrile General Appearance:? Calm, cooperative. ?No acute distress. ? Psychiatric Exam: Alert and oriented, appropriate affect Abdomen: Gravid5 Ctx: ?Q 2-4 min apart. ? ?Moderate ? FHTs: ?Baseline: 150. ? ? Variability: moderate. ?Accels: +. ? ?Decels: ?variable. Had short period of FHR baseline in 160's which resolved with position change. SVE: deferred Membranes: Intact ? Vital Signs: Last Vital Signs Temp 99 F 07/13/24 19:42 Pulse 134 H 07/13/24 21:28 BP 131/77 07/13/24 21:28 Pulse Ox 99 07/13/24 20:38 Plan Plan: Assessment:?? at 40.2 gestation?? GBS positive Patient is coping well with challenges of labor.?? Labor type: Spontaneous, Early labor? Category 1 FHR pattern.? complicated by: Previous emergency C/S desiring TOLAC, Leonora Danlos, Anemia, GBS positive declining treatment, hx of asthma as child Labor complicated by: NA Plan:?? Monitor BP's if additional elevated BP will draw preeclampsia labs and have SL placed Continue with routine intrapartum cares as ordered.?? Patient encouraged to move and change positions to promote physiologic labor and .?? Nonpharmacologic comfort measures per patient preference. Candidate for analgesia of choice if desired. Anticipate progress to NVD. ?
--- NOTE | 2024-07-13 22:44 | PM.OBPNL ---
Subjective Date Seen: 07/13/24 Narrative: ?Liliya is coping well with labor pain/contractions. ?Familia is with her for support. ?She would like to continue with breathing, relaxation and repositioning for comfort and pain management.?She has now had two elevated BP greater than 4 hours apart. Discussed with patient that she now meets criteria for gestational hypertension. Will plan to get Preeclampsia labs now as well. She is agreeable to getting an IV placed now due to this change in her diagnosis. She continues to moved and change positions and is breathing through her contractions at this time. Objective Exam: VSS, afebrile General Appearance:? Calm, cooperative. ?No acute distress. ? Psychiatric Exam: Alert and oriented, appropriate affect Abdomen: Gravid Ctx: ?Q 2-4 min apart. ? ?Moderate ? FHTs: ?Baseline: 155. ? ? Variability: moderate. ?Accels: +. ? ?Decels: ?-. SVE: deferred Membranes: Intact ? Vital Signs: Last Vital Signs Temp 99 F 07/13/24 19:42 Pulse 127 H 07/13/24 22:36 BP 145/78 H 07/13/24 22:36 Pulse Ox 99 07/13/24 20:38 Plan Plan: Assessment:?? at 40.2 gestation?? GBS positive Patient is coping well with challenges of labor.?? Labor type: Spontaneous, Early labor? Category 1 FHR pattern.? complicated by: Previous emergency C/S desiring TOLAC, Leonora Danlos, Anemia, GBS positive declining treatment, hx of asthma as child Labor complicated by: New onset of Gestational Hypertension vs Preeclampsia, labs pending Plan:?? SL placement at this time Preeclampsia lab work ordered Continue with routine intrapartum cares as ordered.?? Patient encouraged to move and change positions to promote physiologic labor and .?? Nonpharmacologic comfort measures per patient preference. Candidate for analgesia of choice if desired. Anticipate progress to NVD. ?
[2024-07-13 22:52] LABS: Alanine Aminotransferase* 16 U/L (4-35); Aspartate Amino Transferase* 26 U/L (12-35); Blood Urea Nitrogen* 11 mg/dL (5-24); Creatinine* 0.7 mg/dL (0.5-1.5); Est. Creatinine Clearance* 107.67; Estimated Glomerular Filt Rate 121 ml/min
[2024-07-14] VITALS (93 sets, daily range): BP systolic 96–192; BP diastolic 52–129; PULSE 70–146; RESP 16–18; TEMP 36.1–37.5; O2SAT 93–100
--- NOTE | 2024-07-14 02:18 | P.OBPN_ITS ---
Subjective Date Seen: 07/14/24 Narrative: ?Liliya is coping well with labor pain/contractions. ?Familia is with her for support. ?She is considering her options for comfort and pain management.?Félix is sitting on a chair in the shower expressed her concern about feeling fatigued and has been debating doing something for pain management. She greatly desires an unmedicated but is feeling worried that fatigue might make it difficult for delivery. She has a safe word with her spouse if she decides to request an epidural. Reviewed options of continuing with current laboring plan, doing a cervical exam if knowing she is making change would be helpful for her, or using any of the pain management options available. She reports contractions now give her pelvic pressure and she can feel her move down with the contractions. After taking some time to think about her options, she elected to have a c ervical exam, this was done and she is 9/100/0. She then requested an epidural and stated I have experienced everything I wanted to. Objective Exam: VSS, afebrile General Appearance:? Calm, cooperative. ?No acute distress. ? Psychiatric Exam: Alert and oriented, appropriate affect Abdomen: Gravid Ctx: ?Q 4 min apart. ? ? ?Strong FHTs: ?Baseline: 140. ? ? Variability: moderate. ?Accels: +. ? ?Decels: ?occ variable. SVE: 9/100/0 Membranes: ?SROM ? clear fluid Vital Signs: Last Vital Signs Temp 97.0 F L 07/14/24 01:53 Pulse 125 H 07/14/24 01:28 Resp 16 07/13/24 23:50 BP 125/73 07/14/24 01:28 Pulse Ox 98 07/14/24 01:53 Assessment Amniotic Membrane Status: SROM Plan Plan: Assessment:?? at 40.3 gestation?? GBS positive Patient is coping with challenges of labor.?? Labor type: Spontaneous, Active labor? Category 1 FHR pattern.? complicated by: Previous emergency C/S desiring TOLAC, Leonora Danlos, Anemia, GBS positive declining treatment, hx of asthma as child Labor complicated by: New onset of Gestational Hypertension in labor, stable BPs at this time Plan:?? Epidural placement per anethesia Continue with routine intrapartum cares as ordered.?? Patient encouraged to move and change positions to promote physiologic labor and .?? Nonpharmacologic comfort measures per patient preference. Candidate for analgesia of choice if desired. Anticipate progress to NVD. ?
[2024-07-14] MEDS: LACTATED RINGERS 1000 ML 1,000 ML 999 ML IV ×2 (02:46→03:49)
[2024-07-14] MEDS: ROPIVACAINE 0.2% 100 ml 100 ML 12 MG EPIDURAL ×2 (03:23→10:02)
[2024-07-14] MEDS: LIDOCAINE 2% (PF) 5 ML VIAL EPIDURAL (03:23)
[2024-07-14] MEDS: ROPIVACAINE 0.2 % PF 10 ML INJ 20 MG EPIDURAL (03:23)
--- NOTE | 2024-07-14 03:30 | P.ANBPRC_ITS ---
[facility] Medical History (Updated 07/13/24 @ 19:50 by Daquan Greer CNM) Depression ?F32.A - Depression, unspecified (ICD-10) Delivery by emergency section ?O99.892 - Other specified diseases and conditions complicating childbirth (ICD-10) Asthma ?J45.909 - Unspecified asthma, uncomplicated (ICD-10) Surgical History (Updated 01/27/24 @ 21:23 by Daquan Greer CNM) History of tonsillectomy and adenoidectomy ?Z90.89 - Acquired absence of other organs (ICD-10) Family History (Updated 01/27/24 @ 21:29 by Daquan Greer CNM) Mother Melanoma Factor V deficiency Pituitary adenoma Anxiety Maternal Grandmother Cardiovascular disease Myocardial infarction Maternal Grandfather Cardiovascular disease Myocardial infarction Social History (Updated 06/24/24 @ 12:49 by Rica Levy CNM) Narrative: SOCIAL? ? Education: Associates degree? Work: Stay at home mom? Partner:. Familia, works as service station equipment mechanic at a [employer]? ? Lives with: Familia and 2 yr old ? Pets: 3 cats, changes cat litter boxes Abuse: Denies past Safe at home with current partner ? Special Diet: Denies? ? Ok with a blood transfusion: yes ? Culture or taoist beliefs: denies ? ?? RISK FACTORS? ? Exercise Times/wk: walking and yoga 5 times a week? ? Depression/Anxiety: as a teen? ? Previous Treatments medication as a teen, nothing since? Therapy denies Seat Belt Use: Routinely? Smoking: Denies past/present Alcohol/day: Denies while ? ?No use when not Caffeine: one cup of coffee a day? Drug Use: Denies past/present ? What is your current living situation?: I presently have a place to live Problems where you live: no known problems In the past 12 months, utilities in danger of being shut off: no In past 12 months, lack of transportation kept you from medical appts, meetings, work, or getting things needed for daily living: no In the past 12 mos, have been you worried that your food would run out before you had money to buy more?: never true In the past 12 mos, the food you bought just didn't last and you didn't have money to buy more?: never true Smoking Status: Never smoker How often does anyone, including family, friends and others, physically hurt you : never How often does anyone, including family, friends and others, insult or talk down to you: never How often does anyone, including family, friends and others, threaten you with harm: never How often does anyone, including family, friends and others, scream or curse at you: never Meds Home Medications and Allergies Home Medications ?Medication ?Instructions ?Recorded ?Confirmed ?Type [id number] 400 mcg-om3 35 mg-dha 25 1 tab PO DAILY PRN 01/27/24 07/13/24 History mg-epa 5 mg-fish oil chewable tablet Allergies Allergy/AdvReac Type Severity Reaction Status Date / Time amoxicillin AdvReac Mild Rash Verified 07/08/24 10:13 Results Labs Labs: Laboratory Results - last 24 hr 07/13/24 19:40 WBC 16.54 H RBC 4.18 Hgb 11.6 L Hct 35.8 MCV 86 MCH 28 MCHC 32 RDW Coeff of Alvino 13.3 Plt Count 251 Neut % (Auto) 78.5 H Lymph % (Auto) 10.3 L Hays % (Auto) 8.5 Eos % (Auto) 0.4 Baso % (Auto) 0.1 Neut # (Auto) 13.00 H Lymph # (Auto) 1.70 Hays # (Auto) 1.40 H Eos # (Auto) 0.10 Baso # (Auto) 0.00 Abs Immat Gran (auto) 0.40 H Imm/Tot Granulo (auto) 2.2 BUN 11 Creatinine 0.7 Estimated Creat Clear 107.67 Estimated GFR 121 AST 26 ALT 16 Blood Type O Positive Antibody Screen NEGATIVE Vital Signs Vital Signs: Last Vital Signs Temp 97.0 F L 07/14/24 01:53 Pulse 127 H 07/14/24 03:29 Resp 16 07/13/24 23:50 BP 115/57 L 07/14/24 03:29 Pulse Ox 99 07/14/24 03:29 Weight: 95.935 kg Height: 165.1 cm Anesthesia Procedures Epidural Insertion Patient Location: OB Start Time: 02:50 Stop Time: 03:30 Start Date: 07/14/24 Stop Date: 07/14/24 Reason for Block: procedure for pain Patient Position: sitting Performed By: Moreno Wilkins Preanesthetic Checklist: IV checked, risks and benefits discussed, surgical consent, monitors and equipment checked, pre-op evaluation, timeout performed and anesthesia consent Prep: chlorhexidine gluconate Monitoring: blood pressure monitoring, continuous pulse oximetry and heart rate Approach: midline Vertebral Space: lumbar (1-5) Epidural Technique: PATY air Needle Type: Tuohy needle Injection Technique: continuous catheter Needle gauge: 17 Needle Length (cm): 10 cm Needle Insertion Depth (cm): 7 Catheter Gauge: 19 Catheter Type: multi-orifice Catheter at skin depth (cm): 13 Test Dose Result: negative and lidocaine 1.5% with epinephrine 1 to 200,000
[2024-07-14] MEDS: LACTATED RINGERS 1000 ML 1,000 ML 125 ML IV (05:00)
--- NOTE | 2024-07-14 05:01 | PM.OBPNL ---
Subjective Date Seen: 07/14/24 Narrative: ? Liliya is coping well with labor pain/contractions. ?Familia is with her for support. ?She would like to continue with her epidural for comfort and pain management.?She has rested approximately one hour and feels pressure with contractions. Cervical exam done with informed consent, she remains unchanged, there is a bulging bag present. Reviewed options for AROM or position changes, side lying release and then rechecking later or no change in plan. She wanted to wait on AROM at this time. Earlier she had two large gushes of fluid when in the shower with little to no fluid leakage since. Plan for side lying release and position change with reevaluation after more rest or PRN. Objective Exam: VSS, afebrile General Appearance:? Calm, cooperative. ?No acute distress. ? Psychiatric Exam: Alert and oriented, appropriate affect Abdomen: Gravid Ctx: ?Q 4-5 min apart. ? ? ?Strong FHTs: ?Baseline: 140. ? ? Variability: moderate. ?Accels: +. ? ?Decels: ?-. SVE: 9/100/0 Membranes: ?SROM of forebag earlier, bulging bag noted with exam Vital Signs: Last Vital Signs Temp 98.8 F 07/14/24 04:09 Pulse 95 07/14/24 04:59 Resp 16 07/13/24 23:50 BP 115/63 07/14/24 04:59 Pulse Ox 97 07/14/24 04:57 Assessment Amniotic Membrane Status: SROM Plan Plan: Assessment:?? at 40.3 wks gestation?? GBS positive not treating per pt choice Patient is coping well with challenges of labor.?? Labor type: Spontaneous, Active labor? Category 1 FHR pattern.? complicated by: Previous emergency C/S desiring TOLAC, Leonora Danlos, Anemia, GBS positive declining treatment, hx of asthma as child Labor complicated by: New onset of Gestational Hypertension in labor, stable BPs at this time Plan:?? Repositioning and side lying release Continue with routine intrapartum cares as ordered.?? Patient encouraged to move and change positions to promote physiologic labor and .?? Nonpharmacologic comfort measures per patient preference. Candidate for analgesia of choice if desired. Anticipate progress to NVD. ?
--- NOTE | 2024-07-14 06:10 | PM.OBPNL ---
Subjective Date Seen: 07/14/24 Narrative: ?Liliya is coping well with labor pain/contractions. ?Trsnadia is with her for support. ?She would like to continue with her epidural for comfort and pain management.?She recently had a large gush of fluid and felt a pop. Cervical exam is unchanged but SROM was within the last 5 minutes. Having stronger feelings of pressure. Fluid is clear. position feels straight OA. Objective Exam: VSS, afebrile General Appearance:? Calm, cooperative. ?No acute distress. ? Psychiatric Exam: Alert and oriented, appropriate affect Abdomen: Gravid Ctx: ?Q 4-5 min apart. ? ? ?Strong FHTs: ?Baseline: 135. ? ? Variability: moderate. ?Accels: +. ? ?Decels: ?=. SVE: 9/100/0 Membranes: ?SROM ?clear Vital Signs: Last Vital Signs Temp 98.8 F 07/14/24 04:09 Pulse 105 H 07/14/24 05:56 Resp 16 07/13/24 23:50 BP 109/55 L 07/14/24 05:56 Pulse Ox 93 07/14/24 06:08 Contractions Monitor mode: External Contraction pattern: Regular Contraction intensity: Strong/Firm Assessment Amniotic Membrane Status: SROM Plan Plan: Assessment:?? at 40.3 gestation?? GBS positive, not treating Patient is coping well with challenges of labor.?? Labor type: Spontaneous, Active labor? Category 1 FHR pattern.? complicated by: Previous emergency C/S desiring TOLAC, Leonora Danlos, Anemia, GBS positive declining treatment, hx of asthma as child Labor complicated by: New onset of Gestational Hypertension in labor, stable BPs at this time Plan:?? Straight cath now as pt desired to not have an indwelling kwong, send specimen to check for proteinuria. Continue with routine intrapartum cares as ordered.?? Patient encouraged to move and change positions to promote physiologic labor and .??Assist pt to reposition, due to difficulty moving in bed due to epidural infusion. Nonpharmacologic comfort measures per patient preference. Candidate for analgesia of choice if desired. Anticipate progress to NVD. ?
[2024-07-14 06:47] LABS: Creatinine Urine 85.5 mg/dL
--- NOTE | 2024-07-14 07:15 | PM.OBPNL ---
Subjective Date Seen: 07/14/24 Narrative: ?Liliya is coping well with labor pain/contractions. ?Familia is with her for support. ?She would like to continue with her epidural for comfort and pain management.?Recently began feeling more pressure with contractions, is now complete and has begun pushing. Report given to on coming CNM. Objective Exam: VSS, afebrile General Appearance:? Calm, cooperative. ?No acute distress. ? Psychiatric Exam: Alert and oriented, appropriate affect Abdomen: Gravid Ctx: ?Q 4-5 min apart. ? ? ?Strong FHTs: ?Baseline: 145. ? ? Variability: moderate. ?Accels: +. ? ?Decels: ?variables with contraction. SVE: 10/100/+1 Membranes: ?SROM clear Vital Signs: Last Vital Signs Temp 98.7 F 07/14/24 07:12 Pulse 121 H 07/14/24 07:14 Resp 16 07/14/24 07:12 BP 151/83 H 07/14/24 07:14 Pulse Ox 98 07/14/24 06:51 Contractions Monitor mode: External Contraction pattern: Regular Contraction intensity: Strong/Firm Assessment Amniotic Membrane Status: SROM Plan Plan: Assessment:?? at 40.3 weeks gestation?? GBS positive Patient is coping well with challenges of labor.?? Labor type: Spontaneous, Active labor? Category 2 FHR pattern.? complicated by: Previous emergency C/S desiring TOLAC, Leonora Danlos, Anemia, GBS positive declining treatment, hx of asthma as child Labor complicated by: New onset of Gestational Hypertension in labor, stable BPs at this time Plan:?? Continue with routine intrapartum cares as ordered.?? Patient encouraged to move and change positions to promote physiologic labor and .?? Nonpharmacologic comfort measures per patient preference. Candidate for analgesia of choice if desired. Anticipate progress to NVD. ?
[2024-07-14 08:07] LABS: Protein Creatinine Ratio Urine 0.11 (0-0.19); Total Protein Urine 9 mg/dL
[2024-07-14] MEDS: LIDOCAINE 1 % PF 30 ML INJECTION (11:25)
--- NOTE | 2024-07-14 11:48 | P.OBCN_ITS ---
OB - CN: HPI Date of Consult Time Seen by Provider: 11:48 Date Seen: 07/14/24 Patient: [facility] Patient Consult date: 07/14/24 Requesting Physician: Daquan Greer CNM Primary Care Provider: Not a Local Provider Consult Narrative Reason for consult: vaginal repair Narrative: The patient is a 29 year old G 2 now P2002 who had a successful at 40.3 weeks gestation. I was asked to perform vaginal laceration repair as our shiatsu therapist had to attend another . Upon presentation, Liliya was doing skin with skin with her girl, Mina. Assessment of the vulvovaginal area revealed edema, 2nd degree laceration, and small (1 cm)/superficial bilateral labial lacerations. Fundus firm and 1 cm below umbilicus. 2nd degree laceration was injected with 5 cc of 1%lidocaine w/o epi until appropriate analgesia was obtained. 2nd degree laceration repaired in a continuous locking manner with 2-0 vicryl. Bilateral labial lacerations did not require repair. QBL 100 cc. History History 2 Elective abortions Para 1 Spontaneous abortions Hx # Term Pregnancies 1 Ectopic pregnancies Hx # Pregnancies Multiple births Number of Living Children 1 Past Pregnancies Del. Date GA/Weeks Outcome Route wt Inf Gender Labor Lgth Anesthesia Location Provider Compli 01/27/22 live - full term low trans verse vacuum extraction 8 lb 9 oz Male [place] [facility] Delivery Date: 01/27/22 Last Updated by: Valerie Michelle ~ BLOWER INSULATOR, BLOWER INSULATOR Induction ,failed epidural, failed vacuum attempt, emergency Labs GBS status: positive OB Labs: Lab Assessment Start: 07/13/24 18:51 Freq: ONCE Status: Complete Protocol: PC.OBGBS Activity Type Activity Date Activity User E-sign Co-sign Detail Recorded Client Recorded Date Recorded By Document 07/13/24 19:02 MORAVIAN No Response 07/13/24 19:03 MORAVIAN 07/13/24 19:02 Lab Assessment GBS Status positive Is Patient Allergic to Penicillin? No Treatment Required OK Are Labs Available Yes Maternal Blood Type O Maternal RH Factor Positive Evaluate Maternal Rubella Immune Status Immune Hepatitis B Surface Antigen Negative Maternal HIV Status Negative Maternal Syphillis (RPR) Status Negative PFS PFS Medical History (Updated 07/14/24 @ 06:16 by Daquan Greer CNM) Depression ?F32.A - Depression, unspecified (ICD-10) Delivery by emergency section ?O99.892 - Other specified diseases and conditions complicating childbirth (ICD-10) Asthma ?J45.909 - Unspecified asthma, uncomplicated (ICD-10) Surgical History (Updated 01/27/24 @ 21:23 by Daquan Greer CNM) History of tonsillectomy and adenoidectomy ?Z90.89 - Acquired absence of other organs (ICD-10) Family History (Updated 01/27/24 @ 21:29 by Daquan Greer CNM) Mother Melanoma Factor V deficiency Pituitary adenoma Anxiety Maternal Grandmother Cardiovascular disease Myocardial infarction Maternal Grandfather Cardiovascular disease Myocardial infarction Social History (Updated 06/24/24 @ 12:49 by Rica Levy CNM) Narrative: SOCIAL? ? Education: Associates degree? Work: Stay at home mom? Partner:. Familia, works as web services professional at a [employer]? ? Lives with: Familia and 2 yr old ? Pets: 3 cats, changes cat litter boxes Abuse: Denies past Safe at home with current partner ? Special Diet: Denies? ? Ok with a blood transfusion: yes ? Culture or hoahaoism beliefs: denies ? ?? RISK FACTORS? ? Exercise Times/wk: walking and yoga 5 times a week? ? Depression/Anxiety: as a teen? ? Previous Treatments medication as a teen, nothing since? Therapy denies Seat Belt Use: Routinely? Smoking: Denies past/present Alcohol/day: Denies while ? ?No use when not Caffeine: one cup of coffee a day? Drug Use: Denies past/present ? What is your current living situation?: I presently have a place to live Problems where you live: no known problems In the past 12 months, utilities in danger of being shut off: no In past 12 months, lack of transportation kept you from medical appts, meetings, work, or getting things needed for daily living: no In the past 12 mos, have been you worried that your food would run out before you had money to buy more?: never true In the past 12 mos, the food you bought just didn't last and you didn't have money to buy more?: never true Smoking Status: Never smoker How often does anyone, including family, friends and others, physically hurt you : never How often does anyone, including family, friends and others, insult or talk down to you: never How often does anyone, including family, friends and others, threaten you with harm: never How often does anyone, including family, friends and others, scream or curse at you: never Meds Home Medications and Allergies Home Medications ?Medication ?Instructions ?Recorded ?Confirmed ?Type [id number] 400 mcg-om3 35 mg-dha 25 1 tab PO DAILY PRN 01/27/24 07/13/24 History mg-epa 5 mg-fish oil chewable tablet Allergies Allergy/AdvReac Type Severity Reaction Status Date / Time amoxicillin AdvReac Mild Rash Verified 07/08/24 10:13 OB - H&P: Exam Physical Exam: Vital signs: Temp Pulse Resp BP Pulse Ox 98.9 F 74 16 128/67 98 07/14/24 11:17 07/14/24 11:47 07/14/24 11:32 07/14/24 11:47 07/14/24 06:51 OB - Results Labs Labs: Short CBC 07/13/24 Range/Units 19:40 WBC 16.54 H (4.50-11.00) K/uL Hgb 11.6 L (12.0-16.0) gm/dL Hct 35.8 (33.0-51.0) % Plt Count 251 (140-440) K/uL BMP 07/13/24 19:40 BUN 11 Creatinine 0.7 Liver Function 07/13/24 Range/Units 19:40 AST 26 (12-35) U/L ALT 16 (4-35) U/L OB - CN: A/P Assessment and Plan (1) Encounter for trial of labor: Status: Acute (2) Pain during labor: Status: Acute (3) 40 weeks gestation of : Status: Acute (4) Hx of section: Status: Acute (5) : Status: Acute
[2024-07-14] MEDS: IBUPROFEN 600 MG TABLET PO ×2 (12:25→17:55)
--- NOTE | 2024-07-14 12:44 | W.PM.OBVAGDE ---
OB Procedure Vag Delivery Mother Details Mother Details: The patient is a 29 year-old, 2, Para 2, admitted on 07/13/24 at 40.3Days gestation. : 2 Para: 2 Weeks Gestation: 40.3 Admission Date: 07/13/24 Additional Details Amniotic Membrane Status: SROM Amniotic Membrane Rupture Date: 07/14/24 Amniotic Membrane Rupture Time: 05:45 Amniotic Membrane Fluid Description: Clear Analgesia/Anesthesia Type: Epidural Waterbirth: No Pitcoin: No (declined AMTSL ) Intrapartal Events: Prolonged 2nd Stage >2.5 Hrs Labor Onset: 18:00 Complete: 06:55 Pushin:00 Heart: heart tones during second stage were category 2. Variables and occasional, non-recurrent decels with pushing. Maintained good variability and accels throughout. Delivery Details Delivery Date: 07/14/24 Delivery Time: 10:52 Route of delivery: Infant Gender: Female Infant Viability: Alive; Heart Rate Present Position at Delivery: OA Delivery Details: Patient was admitted for spontaneous labor and progressed normally. SROM noted at 0545 with clear fluid. Patient was complete at 0655 and pushing at 0700. of a viable female at 1052 in semi fowlers in the bed. Vertex delivered OA. Nuchal x1 easily reduced after delivery of the head. A shoulder dystocia was noted after delivery of the head. It was resolved after 50 seconds with maternal effort and Woody. Infant passed to mothers abdomen with a vigorous cry. Cord was clamped and cut at > 5 minutes. APGARS were 8 at one minute and 8 at five minutes respectively. Mouth was bulb suctioned. Intact placenta with a 3 vessel cord delivered spontaneously at 1116. Fundus firm. 2nd degree identified and repaired in typical fashion. Repair was completed by Dr. Canales as I was called away for another labor patient. See her note for repair details. QBL 100 cc. Mother and baby stable; mother plans to breastfeed. Infant weight 4135g.? 1 Minute Interval Total Score: 8 5 Minute Interval Total Score: 8 Additional Details Shoulder Dystocia: Yes (50 seconds, Woody for delivery) Placenta Delivery Time: 11:16 Placental Delivery Description: Spontaneous Delivery repair: Vicryl (per Dr. Canales, see her note for details ) Procedure Done: Global Blood Loss: 100 Laceration: Perineal - 2nd Degree Episiotomy Description: None Blood Loss Measurement Type: QBL Bakri Used: No Sponge/Need Count Correct: Yes Cord Vessel Description: 3 Vessels, Nuchal Cord, Loose and Reduced Event Summary Status: Mother and infant were stable after delivery. Disposition: floor
[2024-07-14] MEDS: ACETAMINOPHEN 500 MG TABLET 1000 MG PO ×2 (15:16→21:39)
[2024-07-14] MEDS: lidocaine HCL 2 % JELLY (TOP) STERILE 6 ML TOPICAL (18:58)
[2024-07-15] MEDS: IBUPROFEN 600 MG TABLET PO ×3 (00:04→14:14)
[2024-07-15 01:18] VITALS: BP 110/69; RESP 18; O2SAT 98
[2024-07-15] MEDS: ACETAMINOPHEN 500 MG TABLET 1000 MG PO ×2 (04:54→11:52)
[2024-07-15 05:00] VITALS: BP 108/68; PULSE 87; RESP 18; O2SAT 98
--- NOTE | 2024-07-15 07:30 | P.OBPN_ITS ---
OB - PN:Subj Subjective Date Seen: 07/15/24 Narrative: Liliya is a 29 year old G1now P1001 who was admitted for active labor and proceeded to have a vaginal , successful , with a 2nd degree laceration that was repaired.The patient feels well.? The pain is well controlled with cur rent medications.? She has no new complaints.? Urinary output is adequate and she is voiding without difficulty.? Has a good appetite, is tolerating a general diet, is passing flatus, and has not had a bowel movement.? Has scant amount of rubra lochia.? She is ambulating well. She is and reports it is going well, but baby is wanting to eat all the time. She would like to see the LC today, if possible. She would like to go home today, but since she did not treat the GBS+ prophylactically, will wait to see if peds will let her go today. Elevated BP intermittently in labor alternating with low BPs. She met criteria for gestational hypertension, but pre-e labs were negative. Some intermittent severe range pressures were not sustained. She does not have a BP cuff at home. OB - PN: Obj Exam Physical Exam: Vital signs: Temp Pulse Resp BP Pulse Ox O2 Del Method 98.0 F 87 18 108/68 98 Room Air 07/14/24 21:21 07/15/24 05:00 07/15/24 05:00 07/15/24 05:00 07/15/24 05:00 07/15/24 05:00 Narrative: GENERAL APPEARANCE:? normal affect, alert, no distress MOOD:? appropriate CHEST:? clear to auscultation HEART:? regular rate and rhythm ABDOMEN:? soft, non-tender the uterine fundus is 1 cm Above Umbilicus, but patient needs to void. Midline and is appropriate for the stage of recovery. PERINEUM:? mild edema of the perineum, there is a Perineal Laceration,? with minimal edema, and no erythema noted EXTREMITIES:? normal and [] edema OB - PN: Obj Data Labs Labs: Laboratory Results - last 24 hr 07/14/24 07/15/24 06:17 06:26 Hgb 10.0 L Protein/Creatinin Ratio 0.11 Urine Total Protein 9 OB - PN: A/P Delivery Assessment and Plan (1) care and examination of lactating mother: Status: Acute (2) , delivered: Status: Acute (3) Gestational [-induced] hypertension without significant proteinuria, complicating childbirth: Status: Acute Plan Comments: PP day #1 Routine care, to consider discharge based on peds plan Nursing to provide a BP cuff Advised BP check Mon or May see as desired Anticipate discharge 07/15 or 07/16/2024 Nursing to call me if discharge today.
[2024-07-15] MEDS: DOCUSATE SODIUM 100 MG CAPSULE PO (07:52)
[2024-07-15 09:33] VITALS: BP 111/71; PULSE 88; RESP 18; TEMP 36.8; O2SAT 98
--- NOTE | 2024-07-15 13:34 | PM.ANPOST ---
Post Anesthesia Note Post Anesthesia Note Patient seen: Inpatient Respiratory Status: adequate Cardiovascular Status: adequate Mental Status: baseline Pain: adequate Temp: baseline Anesthetic awareness: N/A Complications: none Follow care: none
--- NOTE | 2024-07-15 14:35 | P.DS_ITS ---
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 normal affect, alert, no distress MOOD:? appropriate CHEST:? clear to auscultation HEART:? regular rate and rhythm ABDOMEN:? soft, non-tender the uterine fundus is At Umbilicus, Midline and is appropriate for the stage of recovery. EXTREMITIES:? normal and minimal edema Perineum with laceration with minimal edema, no abnormal erythema or discharge. Repair well approximated. Const: Vital Signs, click to edit/add: Vital Signs - 24 hr 07/14/24 15:10 07/14/24 21:21 07/15/24 01:18 Temperature 98.2 F 98.0 F Pulse Rate [Pulse Oximeter] 92 96 Respiratory Rate 16 16 18 Blood Pressure [Le ft Arm] 114/71 100/72 110/69 Pulse Oximetry 97 98 98 Oxygen Delivery Me thod Room Air Room Air Room Air 07/15/24 05:00 07/15/24 09:33 Temperature 98.3 F Pulse Rate [Pulse Oximeter] 87 88 Respiratory Rate 18 18 Blood Pressure [Le ft Arm] 108/68 111/71 Pulse Oximetry 98 98 Oxygen Delivery Me thod Room Air Room Air OB - DS: Summary Hospital Course Hospital Course: Ban is a 29 y.o. G 2 P 2001 who was [facility] to [facility] for active [facility] She had a that was complicated by a 50 sec shoulder dystocia relieved with maternal efforts and Woody. The patient feels well.? The pain is well controlled with current medications.? She has no new complaints.? She is breast feeding and reports things are going okay. Has met with today for some more tips. the patient has done well.? Vitals have been stable.? She has remained afebrile.?Has a good appetite, is tolerating a general diet.? She is voiding without difficulty.? She is passing gas and has not had a bowel movement.? She is ambulating and denies any dizziness.? Has small amount of rubra lochia. She is planning NFP for prevention.? ?? Problems: difficulty voiding voluntarily the first 12 hours after , that has resolved. Normotensive?since 1247 07/14/2024 ?? plan:? Discharge home with baby.?BP check on Thursday or . To check BP at home daily and notify us if either number is above 140/90. See other education and instructions given to patient. Nursing is getting her a cuff to take home Follow up in 2 weeks and 6 weeks.? , may see if needed? Hgb 10.0. Iron supplement ordered orally every other day? GHTN? Labs WNL or stable with trending? ? Follow up in 3-5 days? Call for signs/symptoms of preeclampsia? ? [place] Gender: Female Time Spent with Patient Time attestation: Total time spent providing and/or coordinating discharge services: Discharge Plan Discharge Disposition: Home, Self-Care Date of Admission: 07/13/24 18:42 Attending Provider on Discharge: Christine Apple Primary Care Provider: Provider,Not a Local Condition: Stable Anticipated Discharge Date/Time: 07/15/24 16:00 Discharge Medications: Continued [id number] oil 400 mcg-35 mg -25 mg-5 mg tablet,chewable 1 tab PO DAILY PRN Discharge Orders: Discharge Order (Routine); Ordered 07/15/24 Ordered By: Christine Apple Patient Education: OB Care, OB Vaginal/Breast Feeding Additional Instructions: Discharge instructions were reviewed with the patient including signs and symptoms of infection and home going medications Nothing vaginally for 6 weeks: no tampons or intercourse Do not drive while taking narcotic pain medication(s) Off Work or School for 6 weeks Symptoms to report to doctor: * Bleeding that saturates more than one pad per hour * Passing clots larger than the size of a golf ball * Pain not relieved by prescribed medication * Fever above 100.4 degrees Fahrenheit * A foul vaginal odor * Difficulty in emotions, mood, and functions * Thoughts of hurting yourself and/or * Painful, reddened area in your breast * Any drainage, redness, or tenderness in your IV/epidural site * Severe headache that doesn't improve after taking medications * Changes in vision, including temporary loss of vision, blurred vision, and/or light sensitivity * Upper abdominal pain (usually under ribs on the right side) * Decrease in urination or painful, frequent urinating * Chest pain * Shortness of breath * Tenderness or pain with redness and/swelling in the calf(s) of your leg [facility] for a BP check?07/18-07/19 Call with BP greater than or equal to 140/90 2-week visit: discuss infant feeding concerns, review control options and screen for anxiety/depression. 6-week visit for an annual exam. consultation services are available to all mothers and babies for the first year after delivery.? To make an appointment, please call [phone]. For pain control of perineum, breast and pelvic pain, take 600 mg Ibuprofen every 6 hours as needed by mouth or 1000 mg acetaminophen (Tylenol) every 6 hours by mouth as needed. You can alternate these so you are taking something every 3 hours as needed. A heating pad can also be used for your abdomen or breasts. You may also take docusate sodium up to twice daily to soften your stools and help to prevent constipation. You may wean off of it when your stools return to normal. Activity Level: Activity as Tolerated and No strenuous activity Discharge Diet: Regular Follow Up App[facility]ments: [facility] [Provider Group] Forms: MyHealth Info Instructions
[2024-07-16 03:07] LABS: Rapid Plasma Reagin (RPR) Non Reactive (Non Reactive)
== END 2024-07-15 16:25 | disposition home or self-care (01) | DRG 560 ==
LOC: OB OUT 18:42 → OB 18:42
PROVIDERS: Advanced Practice Midwife; Admitting Provider Advanced Practice Midwife; Visit Provider Advanced Practice Midwife
DX: O34.211 Maternal care for low transverse scar from previous cesarean delivery (principal); O13.4 Gestational [pregnancy-induced] hypertension without significant proteinuria, complicating childbirth; O66.0 Obstructed labor due to shoulder dystocia; O63.1 Prolonged second stage (of labor); Q79.60 Ehlers-Danlos syndrome, unspecified; O99.824 Streptococcus B carrier state complicating childbirth; O70.1 Second degree perineal laceration during delivery; O71.82 Other specified trauma to perineum and vulva; O99.02 Anemia complicating childbirth; D64.9 Anemia, unspecified; Z3A.40 40 weeks gestation of pregnancy; Z37.0 Single live birth
CPT/HCPCS: 01967; 36415; 82565; 82570; 84156; 84450; 84460; 84520; 85018; 85025; 85027; 86592; 86850; 86900; 86901; G0463; A9270; J2003; J2371; J2795; J7120

== ENCOUNTER 2024-07-18 08:27 | Outpatient (CLI) | payer MEDICAID, SELFPAY | END 2024-07-18 08:28 | disposition home or self-care (01) | LOC: FRMREF 08:28 | PROVIDERS: Visit Provider Advanced Practice Midwife | DX: R30.0 Dysuria (principal) | CPT/HCPCS: 87086; 87186 ==

== ENCOUNTER 2024-07-29 12:01 | Outpatient (CLI) | payer MEDICAID, SELFPAY | END 2024-07-29 12:02 | disposition home or self-care (01) | LOC: NFLDREF 07-30 19:11 | PROVIDERS: Visit Provider Advanced Practice Midwife | DX: N39.0 Urinary tract infection, site not specified (principal) | CPT/HCPCS: 87086 ==

== ENCOUNTER 2024-09-07 11:19 | Outpatient (CLI) | payer MEDICAID, SELFPAY ==
[2024-09-09 02:24] LABS: HPV Source Cervical; HPV, High Risk by TMA Not Detected
== END 2024-09-07 11:20 | disposition home or self-care (01) ==
PROVIDERS: Visit Provider Advanced Practice Midwife
DX: Z12.4 Encounter for screening for malignant neoplasm of cervix (principal); Z11.51 Encounter for screening for human papillomavirus (HPV)
CPT/HCPCS: 87624; 87625; 88141; 88142

== ENCOUNTER 2024-09-19 14:13 | Outpatient (CLI) | payer MEDICAID, SELFPAY ==
[2024-09-19 16:04] LABS: Bacterial Vaginosis* Negative (Negative); Candida glab/krus NOT DETECTED (No Detected); Candida species NOT DETECTED (No Detected); Trichomonas vaginalis NOT DETECTED (No Detected)
== END 2024-09-19 14:14 | disposition home or self-care (01) ==
LOC: NFLDREF 14:13
PROVIDERS: Visit Provider Advanced Practice Midwife
DX: N36.8 Other specified disorders of urethra (principal)
CPT/HCPCS: 81513; 87086; 87481; 87661